=== PATIENT | female | born 1980 | race Caucasian/White ===

== ENCOUNTER 2022-06-11 22:50 | Inpatient (IN) | payer BC, OTHER ==
--- OUTSIDE RECORDS SUMMARY | 2022-06-11 22:54 | XMS REPORT | Continuity of Care Document ---
:1980 Author Organization [facility] [place] [facility] t Address [address] [place] [place] [address] Care Team Providers Name Role Phone Pcp, Patient Does Not Have A Primary Care Physician [id number] YANNICK ROSARIO Attending Clinician Unavailable Alida YOU[employer] SUPPORT WORKERYannick Attending Clinician Doctor Unassigned, Sor[place] Attending Clinician Unavailable Glenda Thomas RN Attending Clinician Unavailable Only, Ang Db Test Attending Clinician Unavailable [place] Pierce Attending Clinician TACOS BERNARD Attending Clinician Unavailable Lab, Adc Fam Pob I Attending Clinician Unavailable Candy Forrest Attending Clinician CANDY ERVIN Attending Clinician Unavailable Narda Zavaleta Attending Clinician August Olivo DO Attending Clinician Payers Payer Name Policy Type Policy Number Effective Date Expiration Date [facility] [id number] 2020 [facility] MEDICAID 00:00:00 MEDICAID [facility] [id number] 2019 00:00:00 [place] [facility] [id number] 2020 HEALTH 00:00:00 Problems Condition Condition Condition Status Onset Resolution Last Treating Co mments Source Name Details Category Date Date Treatment Clinician Date No known No known Disease Unive rs active active ity of problems problems [facility] Allergies, Adverse Reactions, Alerts Allergy Allergy Status Severity Reaction(s) Onset Inactive Treating Comm ents Source Name Type Date Date Clinician CODEINE DRUG Active Unknown-Cmnt Uni vers INGREDI 11-09 ity of 00:00: [place] 00 Medical Branch Codeine Propensi Active Unknown - Pt. Univ ers ty to See comments 11-09 States ity of adverse 00:00: she has [place] reaction 00 always Medical s been told Branch she is allergic but doesn't know reaction. NO KNOWN Drug Active [facility] ALLERGIE Class ity of S [facility] Social History Social Habit Start Date Stop Date Quantity Comments Source Exposure to 2021-10-30 2021-11-09 Not sure [facility] SARS-CoV-2 (event) 00:00:00 14:33:00 Medica l Branch Sex Ass[birth year] At [birth year] [facility] 00:00:00 00:00:00 Medical Branch Smoking Status Start Date Stop Date Source Unknown if ever smoked [facility] Medications Ordered Filled Start Stop Current Ordering Indication Dosage Frequency Signature Comments Components Source Medication Medication Date Date Medication? Clinician (SIG) Name Name ondansetron Yes [id number] 4mg Take 1 Univers 4 mg 11-09 tablet by ity of disintegrat 00:00: mouth [place] ing tablet 00 every 8 Medica l (eight) Branch hours as needed for Nausea and Vomiting (N/V). mupirocin 2 Yes [id number] Apply to Univers % ointment 11-09 area(s) 3 ity of 00:00: (three) [place] 00 times Medical daily. Branch cefdinir 2021- No [id number] 300mg Take 1 U nivers 300 mg 11-09 capsule by ity of capsule 00:00: 04:59 mouth [place] 00 :00 every 12 Medical (twelve) Branch hours for 7 days. fluconazole 2021- No [id number] 150mg Take 1 Univers 150 mg 11-09 tablet by ity of tablet 00:00: 04:59 mouth [place] 00 :00 now for 1 Medical dose. Branch acetaminoph Yes [id number] 1{tbl} Take 1 Univers en-codeine 6-23 tablet by ity of 300-30 mg 00:00: mouth [place] tablet 00 every 4 Medical (four) Branch hours as needed for Pain (scale 7-10). chlorhexidi 2020-0 Yes [id number] 15mL Swish and Univers ne 0.12 % 6-23 spit out ity of mouthwash 00:00: 15 mL 2 [place] 00 (two) Medical times Branch daily. acetaminoph 2020-0 Yes [id number] 1{tbl} Take 1 Univers en-codeine 6-23 tablet by ity of 300-30 mg 00:00: mouth [place] tablet 00 every 4 Medical (four) Branch hours as needed for Pain (scale 7-10). chlorhexidi 2020-0 Yes [id number] 15mL Swish and Univers ne 0.12 % 6-23 spit out ity of mouthwash 00:00: 15 mL 2 [place] 00 (two) Medical times Branch daily. acetaminoph 2020-0 Yes [id number] 1{tbl} Take 1 Univers en-codeine 6-23 tablet by ity of 300-30 mg 00:00: mouth [place] tablet 00 every 4 Medical (four) Branch hours as needed for Pain (scale 7-10). chlorhexidi 2020-0 Yes [id number] 15mL Swish and Univers ne 0.12 % 6-23 spit out ity of mouthwash 00:00: 15 mL 2 [place] 00 (two) Medical times Branch daily. acetaminoph 2020-0 Yes [id number] 1{tbl} Take 1 Univers en-codeine 6-23 tablet by ity of 300-30 mg 00:00: mouth [place] tablet 00 every 4 Medical (four) Branch hours as needed for Pain (scale 7-10). chlorhexidi 2020-0 Yes [id number] 15mL Swish and Univers ne 0.12 % 6-23 spit out ity of mouthwash 00:00: 15 mL 2 [place] 00 (two) Medical times Branch daily. acetaminoph 2020-0 Yes [id number] 1{tbl} Take 1 Univers en-codeine 6-23 tablet by ity of 300-30 mg 00:00: mouth [place] tablet 00 every 4 Medical (four) Branch hours as needed for Pain (scale 7-10). chlorhexidi 2020-0 Yes [id number] 15mL Swish and Univers ne 0.12 % 6-23 spit out ity of mouthwash 00:00: 15 mL 2 [place] 00 (two) Medical times Branch daily. acetaminoph 2020-0 Yes [id number] 1{tbl} Take 1 Univers en-codeine 6-23 tablet by ity of 300-30 mg 00:00: mouth [place] tablet 00 every 4 Medical (four) Branch hours as needed for Pain (scale 7-10). chlorhexidi 2020-0 Yes [id number] 15mL Swish and Univers ne 0.12 % 6-23 spit out ity of mouthwash 00:00: 15 mL 2 [place] 00 (two) Medical times Branch daily. acetaminoph 2020-0 Yes [id number] 1{tbl} Take 1 Univers en-codeine 6-23 tablet by ity of 300-30 mg 00:00: mouth [place] tablet 00 every 4 Medical (four) Branch hours as needed for Pain (scale 7-10). chlorhexidi 2020-0 Yes [id number] 15mL Swish and Univers ne 0.12 % 6-23 spit out ity of mouthwash 00:00: 15 mL 2 [place] 00 (two) Medical times Branch daily. acetaminoph 2020-0 Yes [id number] 1{tbl} Take 1 Univers en-codeine 6-23 tablet by ity of 300-30 mg 00:00: mouth [place] tablet 00 every 4 Medical (four) Branch hours as needed for Pain (scale 7-10). chlorhexidi 2020-0 Yes [id number] 15mL Swish and Univers ne 0.12 % 6-23 spit out ity of mouthwash 00:00: 15 mL 2 [place] 00 (two) Medical times Branch daily. clindamycin 2020-0 2020- No [id number] 300mg Take 2 Univers 150 mg 6-23 07- capsules ity of capsule 00:00: 04:59 by mouth 4 [place] as 00 :00 (four) Medical times Branch daily for 7 days. Vital Signs Vital Name Observation Time Observation Value Comments Source Systolic blood 2021-11-09 19:34:00 144 mm[Hg] Univer sity of pressure [place] [facility] Diastolic blood 2021-11-09 19:34:00 69 mm[Hg] Unive rsity of pressure [facility] Heart rate 2021-11-09 19:34:00 98 /min Universi ty [facility] Body temperature 2021-11-09 19:34:00 37.44 Disha [facility] Respiratory rate 2021-11-09 19:34:00 18 /min [facility] height 2021-11-09 19:34:00 175.3 cm Universi ty [facility] Body weight 2021-11-09 19:34:00 112.492 kg Universi ty [facility] BMI 2021-11-09 19:34:00 36.62 kg/m2 Universi ty [facility] Oxygen saturation in 2021-11-09 19:34:00 97 /min University Arterial blood by [facility] Pulse oximetry Branch Oxygen saturation in 2019-11-25 04:39:00 100 /min University Arterial blood by [facility] Pulse oximetry Branch Systolic blood 2019-11-25 04:39:00 141 mm[Hg] Univer sity of pressure [facility] Diastolic blood 2019-11-25 04:39:00 86 mm[Hg] Unive rsity of pressure [facility] Heart rate 2019-11-25 04:39:00 89 /min [facility] [place] [facility] Body temperature 2019-11-25 04:39:00 37.56 Disha [facility] Respiratory rate 2019-11-25 04:39:00 22 /min [facility] Body weight 2019-11-25 04:39:00 90.719 kg [facility] Procedures Procedure Date / Time Performed Performing Clinician Sour e POCT TEST 2021-11-09 20:08:00 Yannick Rosario [facility] URINALYSIS 2021-11-09 19:41:00 Feliciano Ray o f [facility] NOTICE OF PRIVACY 2021-11-09 19:32:43 Doctor Unassigned, No [facility] Branch CONSENT/REFUSAL FOR 2021-11-09 19:26:22 Doctor Unassigned, No [facility] DI[facility] AND Name Medical Branch TREATMENT WI INJECTION AA&/STRD 2019-11-25 04:49:00 August Olivo s[facility] of [place] TRIGEMINAL NERVE EACH Medical Br anch BRANCH NOTICE OF PRIVACY 2019-11-25 04:35:11 Doctor Unassigned, No [facility] Name Medical Branch CONSENT/REFUSAL FOR 2019-11-25 04:34:50 Doctor Un[facility]igned, [facility] AND Name Medical Branch TREATMENT Encounters Start End Encounter Admission Attending Care Care Encounter Source Date/Time Date/Time Type Type Clinicians Facility Department ID 2021-11-09 2021-11-09 Emergency X [facility] ERT [id number] Univers 14:39:00 18:25:00 YANNICK ity of [facility] 2021-11-09 2021-11-09 Emergency [facility] [id number] Univers 14:39:00 18:25:00 Yannikc WHITMORE [id number] ity of [place] [id number] [place] [facility] [phone] [facility] 084 Branch 2021-11-09 2021-11-09 Orders Doctor SHU [id number] Univers 00:00:00 00:00:00 Only Unassigned, GUTIERREZ [id number] ity of [place] [facility] [id number] [place] as [phone] [facility] 009 Branch 2021-06-20 2021-06-20 Telephone SHU Thomas [id number] Univers 00:00:00 00:00:00 Glendaherberth WHITLEY [id number] it y of HOSPITAL [id number] [place] as [phone] [facility] 019 Branch 2021-06-19 2021-06-19 Laboratory Only, Ang Db Test [facility] [id number] Univers 13:30:00 13:45:00 [facility] [id number] ity of [place] [id number] [place] as KEIRA?BLEA [phone] Pa jacob [address] MEDICAL OFFICE BUILDING 2021-06-19 2021-06-19 Outpatient R TIMO BERNARDMB [facility] [id number] Univers 13:30:00 13:30:00 TACOS ity of [facility] 2020-06-18 2020-06-18 Laboratory Lab, [facility] I [facility] [id number] Univers 16:38:53 16:58:53 Only Candy [facility] [id number] ity of [place] [id number] [place] as Professio [id number] [address] Office Building One 2020-06-18 2020-06-18 Outpatient R KETAN [facility] [id number] Univers 15:40:00 15:40:00 CANDY ity o f [facility] 2020-04-21 2020-04-21 Outpatient R [facility] [id number] Univers 14:40:00 14:40:00 ity of [facility] 2020-04-21 2020-04-21 Laboratory Lab, [facility] Po I [facility] [id number] Univers 13:43:45 14:03:45 Only Narda [facility] [id number] ity of [place] [id number] [place] as Professio [phone] [address] Office [facility] One 2020-04-21 2020-04-21 Letter Doctor SHU [id number] Univers 00:00:00 00:00:00 (Out) Unassigned, GUTIERREZ [id number] ity of [place] [facility] [id number] [place] as [phone] [address] 2019-11-24 2019-11-25 Emergency Olivo, [facility] [id number] Univers 23:43:49 00:37:00 August Whitmore [id number] i ty of [place] [id number] [place] [facility] [phone] [facility] 084 [place] 2019-11-24 2019-11-24 Emergency X [facility] ERT [id number] Univers 23:33:00 23:33:00 ity [facility] Results Test Description Test Time Test Comments Results Result Comments Source POCT TEST 2021-11-09 20:08:00 Test Item Value Reference Range Interpretation Comme nts POCT PREG (test code = 1605) Negative On board controls acceptable with C Line (test code = 3574) Present POCT PREG LOT # (test code = 3575) [id number] POCT PREG TEST DATE (test code = 3576) 04/02/23 Lab Interpretation (test code = 88140-0) Normal [facility] [id number] 04:49:00August Olivo, ? ? 11/24/2019 11:49 PMDental BlockPerformed by: August Olivo DOAuthorized by: August Olivo DO Consent: ?Consent obtained: ?Verbal ?Consent given by: ?Patient ?Risks discussed: ?Allergic reaction, infection, nerve damage, pain, intravascular injection and hematoma ?Alternatives discussed: ?No treatmentIndications: ?Indications: dental pain ?Location: ?Block type: ?Anterior superior alveolar ?Laterality: ?LeftProcedure details (see MAR for exact dosages): ?Syringe type: ?Luer lock syringe ?Needle gauge: ?27 G ?Anesthetic injected: ?Lidocaine 1% w/o epi and bupivacaine 0.5%w/o epi ?Injection procedure: ?Anatomic landmarks identified, introduced needle, incremental injection and anatomic landmarks palpatedPost-procedure details: ?Outcome: ?Anesthesia achieved ?Patient tolerance of procedure: ?Tolerated well, no immediate complicationsUnPermian [facility] Center
[2022-06-11] MEDS ORDERED: ONDANSETRON 4 MG/2 ML VIAL ONE (23:57)
[2022-06-11] MEDS ORDERED: NA CHLORIDE 0.9% 1,000 ML ONE (23:57)
[2022-06-11] MEDS ORDERED: FAMOTIDINE 20 MG/2 ML VIAL IV ONE (23:57)
[2022-06-12] LABS: Urine Blood 3+ (Negative); Urine Glucose Negative (Negative); Urine Protein 2+ (Negative); Urine Specific Gravity 1.025 (1.005-1.030)
[2022-06-12 00:24] LABS: Urine Bacteria <20 /HPF (<20); Urine Mucus 3+ /HPF (None Seen); Urine RBC 21-50 /HPF (None Seen)
[2022-06-12 00:34] LABS: Urine Specific Gravity/Preg 1.025 (1.005-1.030)
[2022-06-12 02:07] LABS: Absolute Lymphocytes (CBC) 1.8 K/uL (0.7-4.9); Hematocrit 39.8 % (36.0-45.0); Lymphocytes % 14.4 % (15.3-44.8); MCV 95.1 fL (80-100); MPV 8.1 fL (7.6-11.3); RBC Red Blood Cell Count 4.18 M/uL (3.86-4.86)
[2022-06-12 02:22] LABS: Albumin 3.4 g/dL (3.4-5.0); Bilirubin Total 0.6 mg/dL (0.2-1.0); Potassium 3.6 mmol/L (3.5-5.1)
--- NOTE | 2022-06-12 03:38 | EDPHYS ---
Physician Documentation [facility] Name: Greta Luna Age: 42 yrs Sex: Female : 1980 Arrival Date: 06/11/2022 Time: 22:56 Bed 4 Private MD: ED Physician Ramon De HPI: 06/12 00:00 This 42 yrs old Female presents to ER via Ambulatory with complaints of cp Nausea/Vomiting, Constipation, Anxiety. 00:00 The patient presents to the emergency department with nausea, that is severe, vomiting, cp that is continuous. Onset: The symptoms/episode began/occurred 3 day(s) ago. Possible causes: unknown. Associated signs and symptoms: Pertinent positives: abdominal pain, anorexia, constipation, Pertinent negatives: fever, GI bleeding. Severity of symptoms: in the emergency department the symptoms are unchanged despite home interventions. 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 - Social history:: Smoking status: Patient reports the use of cigarette tobacco products, smokes one-half pack cigarettes per day. ROS: 06/12 00:05 Constitutional: Positive for poor PO intake, Negative for body aches, chills, fever. cp 00:05 Eyes: Negative for injury, pain, redness, and discharge. cp 00:05 ENT: Negative for drainage from ear(s), ear pain, sore throat, difficulty swallowing, difficulty handling secretions. 00:05 Cardiovascular: Negative for chest pain, palpitations. 00:05 Respiratory: Negative for cough, shortness of breath, wheezing. 00:05 Abdomen/GI: Positive for abdominal pain, nausea and vomiting, constipation, abdominal distension, anorexia, Negative for diarrhea, hematemesis, black/tarry stool, rectal bleeding. 00:05 Neuro: Negative for altered mental status, dizziness, headache, weakness. 00:05 All other systems are negative. Exam: 00:10 Head/Face: Normocephalic, atraumatic. cp 00:10 Constitutional: The patient appears in no acute distress, alert, awake, non-toxic, well developed, well nourished, obese, uncomfortable. 00:10 Eyes: Periorbital structures: appear normal, Conjunctiva: normal, no exudate, no injection, Sclera: no appreciated abnormality, Lids and lashes: appear normal, bilaterally. 00:10 ENT: External ear(s): are unremarkable, Nose: is normal, Mouth: Lips: moist, Oral mucosa: moist, Posterior pharynx: Airway: no evidence of obstruction, patent, erythema, is not appreciated, exudate, is not appreciated. 00:10 Neck: ROM/movement: is normal, is supple, without pain, no range of motions limitations, no meningismus. 00:10 Chest/axilla: Inspection: normal. 00:10 Cardiovascular: Rate: normal, Rhythm: regular, Edema: is not appreciated, JVD: is not appreciated. 00:10 Respiratory: the patient does not display signs of respiratory distress, Respirations: normal, no use of accessory muscles, no retractions, labored breathing, is not present, Breath sounds: are clear throughout, no decreased breath sounds, no stridor, no wheezing. 00:10 Abdomen/GI: Inspection: abdomen appears normal, Bowel sounds: active, all quadrants, Palpation: soft, in all quadrants, severe abdominal tenderness, in all quadrants, rebound tenderness, is not appreciated, voluntary guarding, is elicited in all quadrants. 00:10 Back: CVA tenderness, is absent. 00:10 Skin: no rash present. 00:10 Neuro: Orientation: to person, place \T\ time. Mentation: is normal. Vital Signs: 06/11 23:19 BP 131 / 80; Pulse 97; Resp 18; Temp 97.2; Pulse Ox 97% ; Weight 108.86 kg; Height 5 tw5 ft. 8 in. (172.72 cm); Pain 10; 06/12 01:00 BP 107 / 64; Pulse 65; Resp 19 S; Pulse Ox 97% on R/A; as6 02:03 BP 118 / 65; Pulse 68; Resp 15 S; Pulse Ox 95% on R/A; as6 03:00 BP 131 / 99; Pulse 71; Resp 17; Pulse Ox 95% ; jj7 04:00 BP 124 / 83; Pulse 76; Resp 18; Pulse Ox 99% ; jj7 06/11 23:19 Body Mass Index 36.49 (108.86 kg, 172.72 cm) tw5 MDM: 06/11 23:43 Patient medically screened. 06/12 00:15 Differential diagnosis: Nonspecific abd pain, gastritis, cholecystitis, diverticulitis, cp bowel obstruction, pancreatititis. 03:37 Data reviewed: vital signs, nurses notes, lab test result(s), radiologic studies. rt Management of patient was discussed with the following: Hospitalist: kindra. Independent interpretation of the following test(s) in the Emergency Department CT Scan: My interpretation is moderate stool burden. Test considered but Not performed: Ultrasound no elevated bili. Medication response: morphine partially relieved the patient's pain, Zofran partially relieved the patient's nausea. Response to treatment: the patient's symptoms have mildly improved after treatment. 06/11 23:51 Order name: CBC with Diff; Complete Time: 02:13 06/12 02:14 Interpretation: Normal except: WBC 12.20; CATALINA% 78.6; LYM% 14.4; NEUT A 9.6. 06/11 23:51 Order name: CMP 06/12 02:31 Interpretation: Normal except: GLUC 131; GFR 82; AST 45; ALT 75; GLOB 3.6; A/G 0.9. 06/11 23:51 Order name: Lipase 06/12 02:31 Interpretation: Abnormal: LIP 755. 06/11 23:51 Order name: Urine Microscopic Only; Complete Time: 01:00 06/12 02:31 Interpretation: Normal except: URBC 21-50; SQEPI 20-50; MUCUS 3+. 06/12 00:00 Order name: Urine Dipstick-Ancillary; Complete Time: 01:00 EDNY 06/12 00:04 Order name: Urine --Ancillary (enter results); Complete Time: 01:00 mw2 06/12 01:00 Order name: CT Abd/Pelvis - IV Contrast Only 06/12 02:32 Order name: UDS 06/12 03:34 Order name: SARS RAPID rt 06/12 05:56 Order name: Hemoglobin A1c [facility] 06/12 06:08 Order name: Lipid Profile [facility] 01/09 23:51 Order name: IV Saline Lock; Complete Time: 00:13 cp 06/11 23:51 Order name: Labs collected and sent; Complete Time: 00:13 cp 06/11 23:51 Order name: Urine Dipstick-Ancillary (obtain specimen); Complete Time: 00:03 cp 06/11 23:51 Order name: Urine Test (obtain specimen); Complete Time: 00:03 cp Administered Medications: 00:14 Drug: NS 0.9% 1000 ml Route: IV; Rate: 1 bolus; Site: right antecubital; jj7 06:04 Follow up: Response: No adverse reaction; IV Status: Completed infusion; IV Intake: as6 1000ml 00:14 Drug: Pepcid (famotidine) 20 mg Route: IVP; Site: right antecubital; jj7 06:04 Follow up: Response: No adverse reaction as6 00:14 Drug: Zofran (Ondansetron) 4 mg Route: IVP; Site: right antecubital; jj7 06:04 Follow up: Response: No adverse reaction as6 04:08 Drug: Zofran (Ondansetron) 4 mg Route: IVP; Site: right antecubital; jj7 06:06 Follow up: Response: No adverse reaction as6 04:09 Drug: morphine 4 mg Route: IVP; Infused Over: 4 mins; Site: right antecubital; jj7 06:06 Follow up: Response: No adverse reaction as6 Disposition: 03:37 Co-signature as Attending Physician, Ramon De MD I agree with the assessment and rt plan of care. I reviewed the patient's care provided by Advanced Practice Provider \T\ agree w/ the diagnosis \T\ care plan. I personally saw the pt \T\ performed a substantive portion of the visit, incldng all aspects of the (History/Exam/Medical Decision Making). Disposition Summary: 06/12/22 03:37 Hospitalization Ordered Hospitalization Status: Inpatient Admission rt Provider: Lavern Reeves rt Condition: Fair rt Problem: new rt Symptoms: have improved rt Bed/Room Type: Standard rt Location: Telemetry/MedSurg (Inpatient)(06/12/22 06:26) Room Assignment: [facility](06/12/22 07:06) ss Diagnosis - ACUTE PANCREATITIS rt Forms: - Medication Reconciliation Form rt - SBAR form rt Signatures: Dispatcher [employer] EDRosalee Pena RN RN ss Jeremias Haywood PA PA cp Glenda Gongora RN RN Dede Kidd tw5 Danna Fay RN RN jj7 Ramon De MD MD rt Joshua Cantu RN as6 Corrections: (The following items were deleted from the chart) 06/11 23:24 23:23 Home Meds: None; tw5 tw5 06/12 02:31 02:29 Normal except: GLUC 131; GFR 82. cp cp 04:14 03:37 Telemetry/MedSurg (Inpatient) rt cg 04:14 03:37 rt cg 06:26 04:14 [facility] ER HOLD cg cg 06:26 04:14 ERHOLD- cg cg 07:06 06:26 cg ss
--- NOTE | 2022-06-12 03:38 | ER ---
Nurse's Notes [facility] Name: Greta Luna Age: 42 yrs Sex: Female : 1980 Arrival Date: 06/11/2022 Time: 22:56 Bed 4 Private MD: Diagnosis: ACUTE PANCREATITIS Presentation: 06/11 23:19 Chief complaint: Patient states: "I have not been able to have a bowel movement in two tw5 weeks. I have been in so much pain since Saturday. Every time I eat I throw it back up. I feel bloated, today the pain is just too much. ". Coronavirus screen: Vaccine status: Patient reports being unvaccinated. Ebola Screen: Patient negative for fever greater than or equal to 101.5 degrees Fahrenheit, and additional compatible Ebola Virus Disease symptoms Patient denies exposure to infectious person. Patient denies travel to an Ebola-affected area in the 21 days before illness onset. Initial Sepsis Screen: Does the patient meet any 2 criteria? No. Patient's initial sepsis screen is negative. Does the patient have a suspected source of infection? No. Patient's initial sepsis screen is negative. Risk Assessment: Do you want to hurt yourself or someone else? Patient reports no desire to harm self or others. Onset of symptoms is unknown. 23:19 Acuity: EVELYN 3 tw5 23:19 Method Of Arrival: Ambulatory tw5 Triage Assessment: 23:23 General: Appears uncomfortable, Behavior is crying. Pain: Pain currently is 10 out of tw5 10 on a pain scale. GI: Reports constipation, intolerance of fluids, intolerance of food, nausea, vomiting. 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 - Social history:: Smoking status: Patient reports the use of cigarette tobacco products, smokes one-half pack cigarettes per day. Screenin:50 [facility] ED Fall Risk Assessment (Adult) History of falling in the last 3 months, jj7 including since admission No falls in past 3 months (0 pts) Confusion or Disorientation No (0 pts) Intoxicated or Sedated No (0 pts) Impaired Gait No (0 pts) Mobility Assist Device Used No (0 pt) Altered Elimination No (0 pt) Score/Fall Risk Level 0 - 2 = Low Risk Maintained a safe environment. Abuse screen: Denies threats or abuse. Nutritional screening: No deficits noted. Tuberculosis screening: No symptoms or risk factors identified. Assessment: 23:50 GI: Abdomen is non-distended, Abd is soft X 4 quads Abdomen is tender to palpation in jj7 epigastric area, left upper quadrant and left lower quadrant Reports lower abdominal pain, upper abdominal pain, constipation, nausea, vomiting. 06/12 02:03 General: "I still have a headache". as6 04:31 Reassessment: PT PLACED IN HOSPITAL BED FOR COMFORT. jj7 Vital Signs: 06/11 23:19 BP 131 / 80; Pulse 97; Resp 18; Temp 97.2; Pulse Ox 97% ; Weight 108.86 kg; Height 5 tw5 ft. 8 in. (172.72 cm); Pain 10; 06/12 01:00 BP 107 / 64; Pulse 65; Resp 19 S; Pulse Ox 97% on R/A; as6 02:03 BP 118 / 65; Pulse 68; Resp 15 S; Pulse Ox 95% on R/A; as6 03:00 BP 131 / 99; Pulse 71; Resp 17; Pulse Ox 95% ; jj7 04:00 BP 124 / 83; Pulse 76; Resp 18; Pulse Ox 99% ; jj7 06/11 23:19 Body Mass Index 36.49 (108.86 kg, 172.72 cm) tw5 ED Course: 06/11 22:56 Patient arrived in ED. ja2 23:14 Jeremias Haywood PA is PHCP. cp 23:14 Ramon De MD is Attending Physician. cp 23:22 Triage completed. tw5 23:23 Arm band placed on. tw5 23:32 Joshua Cantu, AMY is Primary Nurse. as6 23:50 Patient has correct armband on for positive identification. Placed in gown. Bed in low jj7 position. Call light in reach. Side rails up X 1. Adult w/ patient. Warm blanket given. 06/12 00:10 Inserted saline lock: 20 gauge in right antecubital area, using aseptic technique. jj7 Blood collected. 00:13 CBC with Diff Sent. jj7 00:13 CMP Sent. jj7 00:13 Lipase Sent. jj7 02:52 CT Abd/Pelvis - IV Contrast Only In Process Unspecified. EDMS 03:36 Lavern Reeves MD is Hospitalizing Provider. rt 06:08 No provider procedures requiring assistance completed. Patient admitted, IV remains in as6 place. Administered Medications: 00:14 Drug: NS 0.9% 1000 ml Route: IV; Rate: 1 bolus; Site: right antecubital; jj7 06:04 Follow up: Response: No adverse reaction; IV Status: Completed infusion; IV Intake: as6 1000ml 00:14 Drug: Pepcid (famotidine) 20 mg Route: IVP; Site: right antecubital; jj7 06:04 Follow up: Response: No adverse reaction as6 00:14 Drug: Zofran (Ondansetron) 4 mg Route: IVP; Site: right antecubital; jj7 06:04 Follow up: Response: No adverse reaction as6 04:08 Drug: Zofran (Ondansetron) 4 mg Route: IVP; Site: right antecubital; jj7 06:06 Follow up: Response: No adverse reaction as6 04:09 Drug: morphine 4 mg Route: IVP; Infused Over: 4 mins; Site: right antecubital; jj7 06:06 Follow up: Response: No adverse reaction as6 Medication: 06/11 23:50 VIS not applicable for this client. jj7 Intake: 06/12 06:04 IV: 1000ml; Total: 1000ml. as6 Outcome: 03:37 Decision to Hospitalize by Provider. rt 06:09 Admitted to ER Hold. Please see [facility] for further documentation. as6 06:09 Condition: stable 06:09 Instructed on the need for admit. 07:37 Patient left the ED. iw Signatures: Dispatcher [employer] EDMS Kerry Beltre RN RN iw Jeremias Haywood PA PA cp Alexander, Jessica ja2 Dede Fried tw5 Joshua Cantu RN RN as6 Danna Fay RN RN jj7 Ramon De MD MD rt Corrections: (The following items were deleted from the chart) 06/11 23:24 23:23 [place] Meds: None; tw5 tw5
--- NOTE | 2022-06-12 03:58 | P.HP ---
Certification for Inpatient Patient admitted to: Inpatient With expected LOS: >2 Midnights Patient will require the following post-hospital care: None Practitioner: I am a practitioner with admitting privileges, knowledge of patient current condition, hospital course, and medical plan of care. Services: Services provided to patient in accordance with Admission requirements found in Title 42 Section 412.3 of the Code of Federal Regulations Patient History Date of Service: 06/12/22 Reason for admission: Acute Pancreatitis History of Present Illness: Patient is a 42 year old female who presented to the emergency department with complaints of nausea, vomiting, abdominal pain, and constipation. She reports she has not had a BM in 2 weeks but started having intractable n/v/abd pain about 3 days ago. She reports the pain is mostly in the epigastric region. She has not been able tolerate PO. CT showed acute pancreatitis without pseudocyst. Labs significant for lipase 755, WBC 12. She was given morphine, zofran, and pepcid with mild relief. She denies any prior episodes of pancreatitis. States minimal alcohol intake. Denies any gallbladder issues. Does not believe she has high cholesterol/hyperlipiemia. States her mother did have chronic panreatitis secondary to alcohol abuse. Patient is admitted for further management. Allergies acetaminophen [From Darvocet-N 100] Allergy (Mild, Verified 09/23/11 15:15) Nausea/Vomiting propoxyphene napsylate [From Darvocet-N 100] Allergy (Mild, Verified 09/23/11 15:15) Nausea/Vomiting Home medications list reviewed: Yes - Past Medical/Surgical History Diabetic: No -: Paroxsymal Atrial Fibrillation -: Endometriosis -: Iron Deficiency Anemia -: x 2 -: Endometrial Mass Excision Psychosocial/ Personal History: Patient is . - Family History Mother -: Heart disease - Social History Smoking Status: Current every day smoker Alcohol use: No CD- Drugs: No Caffeine use: Yes Place of Residence: Home Review of Systems Gastrointestinal: Nausea, Vomiting, Abdominal Pain, Constipation Physical Examination - Vital Signs Temperature: 97.2 F Blood Pressure: 124/83 Pulse: 76 Respirations: 18 Pulse Ox (%): 99 - Physical Exam General: Alert, In no apparent distress HEENT: Atraumatic, PERRLA, EOMI, Sclerae nonicteric Neck: Supple, 2+ carotid pulse no bruit, No LAD, Without JVD or thyroid abnormality Respiratory: Clear to auscultation bilaterally, Normal air movement Cardiovascular: Regular rate/rhythm, Normal S1 S2 Gastrointestinal: Normal bowel sounds, Non-distended, Tenderness Musculoskeletal: No tenderness Integumentary: No rashes Neurological: Normal speech, Normal strength at 5/5 x4 extr, Normal tone, Normal affect - Studies Laboratory Data (last 24 hrs) 06/12/22 01:51: Sodium 140, Potassium 3.6, BUN 14, Creatinine 0.90, Glucose 131 H, Total Bilirubin 0.6, AST 45 H, ALT 75 H, Alkaline Phosphatase 100, Lipase 755 H 06/12/22 01:51: WBC 12.20 H, Hgb 13.3, Hct 39.8, Plt Count 283 Assessment and Plan - Problems (Diagnosis) (1) Acute pancreatitis Current Visit: Yes Status: Acute Qualifiers: Pancreatitis type: unspecified pancreatitis type Acute pancreatitis complication: no infection or necrosis Qualified Code(s): K85.90 - Acute pancreatitis without necrosis or infection, unspecified - Plan Patient is admitted for further management of acute pancreatitis. Lipase and CBC daily. Liver enzymes slightly elevated. Will recheck tomorrow. Tbili WNL. Pain medicine and antiemetics as needed. NPO. IV hydration. Will check lipid panel. Monitor and replete electrolytes per protocol. Reconcile and continue home medications. Lovenox for VTE prophylaxis. Full code. Discharge Plan: Home Plan to discharge in: Greater than 2 days - Advance Directives Does patient have a Living Will: No Does patient have a Durable POA for Healthcare: No - Code Status/Comfort Care Code Status Assessed: Yes Code Status: Full Code Physician Review: Patient Assessed, Agree with Above Assessment and Plan Critical Care: No Time Spent Managing Pts Care (In Minutes): 50
[2022-06-12] MEDS ORDERED: ONDANSETRON 4 MG/2 ML VIAL ONE ×2 (04:02→05:29)
[2022-06-12] MEDS ORDERED: MORPHINE 4 MG/ML SYR ONE (04:02)
[2022-06-12 04:31] LABS: SARS-CoV-2 Antigen Rapid Res Negative (Negative)
[2022-06-12] MEDS ORDERED: MORPHINE 2 MG/ML SYR IV PRN (05:16)
[2022-06-12] MEDS: Ringers Lactate 1,000 ML IV SCH ×3 (05:16→23:35)
[2022-06-12] MEDS ORDERED: MORPHINE 2 MG/ML SYR ONE (05:29)
[2022-06-12] MEDS: ONDANSETRON 4 MG/2 ML VIAL IV PRN ×3 (05:31→18:19)
[2022-06-12 05:48] VITALS: BMI 36.5
[2022-06-12] MEDS ORDERED: INFLUENZA VACCINE (for 6+ mo) 0.5 ML DOSE IMVAC ONE (08:00)
[2022-06-12] MEDS ORDERED: ACETAMIN/CAFFEINE/BUTALB TAB PO ONE ×2 (10:20→21:51)
[2022-06-12] MEDS: ENOXAPARIN 40 MG/0.4 ML SQ SCH (10:43)
[2022-06-12] MEDS: MORPHINE 4 MG/ML SYR IV PRN ×4 (10:51→22:28)
--- NOTE | 2022-06-12 14:06 | RAD REPORT ---
EXAM DESCRIPTION: CT - Abdomen Pelvis W Contrast - 06/12/2022 7:17 am CLINICAL HISTORY: The patient is 42 years old and is Female; abdominal pain, constipation TECHNIQUE: Axial computed tomography images of the abdomen and pelvis with intravenous contrast. S agittal and coronal reformatted images were created and reviewed. This CT exam was performed using one or more of the following dose reduction techniques: automated exposure control, adjustment of t he mA and/or kV according to patient size, and/or use of iterative reconstruction technique. COMPARISON: No relevant prior studies available. FINDINGS: LUNG BASES: Unremarkable. No mass. No consolidation. ABDOMEN: LIVER: The liver is enlarged and diffusely fatty. GALLBLADDER AND BILE DUCTS: No calcified stones. No ductal dilation. PANCREAS: Peripancreatic inflammation and fluid is noted. The pancreas enhances uniformly. SPLEEN: Unremarkable. ADRENALS: Unremarkable. No mass. KIDNEYS AND URETERS: Unremarkable. The kidneys enhance symmetrically. No obstructing renal or ur eteral calculus is seen. No hydronephrosis or hydroureter. No perinephric fluid or stranding. STOMACH AND BOWEL: The stomach is distended with fluid and air. The small bowel is normal in zana iber. Stool is present throughout colon. There is no mucosal thickening or evidence of obstruction. PELVIS: APPENDIX: The appendix is normal in caliber without surrounding inflammation. BLADDER: Unremarkable. No mass. REPRODUCTIVE: Unremarkable as visualized. ABDOMEN and PELVIS: INTRAPERITONEAL SPACE: Unremarkable. No free air. No significant fluid collection. BONES/JOINTS: No acute fracture. SOFT TISSUES: A small fat-containing umbilical hernia is present. VASCULATURE: Unremarkable. No abdominal aortic aneurysm. LYMPH NODES: Unremarkable. No enlarged lymph nodes. IMPRESSION: Findings consistent with acute pancreatitis. No evidence of pseudocyst. Electronically signed by: Julianne Lozada MD 06/12/2022 3:21 AM SPAR CAP BEVELER Due to temporary technical issues with the PACS/Fluency reporting system, reports are being signed by the in house radiologists without review as a courtesy to insure prompt reporting. The interpreting radiologist is fully responsible for the content of the report.
[2022-06-12] MEDS: ACETAMIN/CAFFEINE/BUTALB TAB PO PRN (22:00)
[2022-06-13] MEDS: ONDANSETRON 4 MG/2 ML VIAL IV PRN ×4 (01:41→22:15)
[2022-06-13] MEDS: MORPHINE 4 MG/ML SYR IV PRN ×5 (02:46→20:17)
[2022-06-13 05:09] LABS: Absolute Lymphocytes (CBC) 1.9 K/uL (0.7-4.9); Hematocrit 39.6 % (36.0-45.0); Lymphocytes % 22.9 % (15.3-44.8); MCV 95.2 fL (80-100); MPV 8.5 fL (7.6-11.3); RBC Red Blood Cell Count 4.16 M/uL (3.86-4.86)
[2022-06-13 05:30] LABS: Albumin 3.3 g/dL (3.4-5.0); Bilirubin Total 0.5 mg/dL (0.2-1.0); Magnesium 1.9 mg/dL (1.6-2.4); Phosphorus 2.9 mg/dL (2.5-4.9); Potassium 3.4 mmol/L (3.5-5.1)
[2022-06-13] MEDS: Ringers Lactate 1,000 ML IV SCH ×2 (06:57→16:13)
[2022-06-13] MEDS ORDERED: POTASSIUM CL 40 MEQ in NA CHLORIDE 0.9% 500 ML IV SCH (09:00)
[2022-06-13] MEDS: ENOXAPARIN 40 MG/0.4 ML SQ SCH (09:05)
[2022-06-13] MEDS: ACETAMIN/CAFFEINE/BUTALB TAB PO PRN (14:30)
[2022-06-14] MEDS: Ringers Lactate 1,000 ML IV SCH ×2 (01:03→08:37)
[2022-06-14] MEDS: ACETAMIN/CAFFEINE/BUTALB TAB PO PRN (01:03)
[2022-06-14] MEDS: MORPHINE 4 MG/ML SYR IV PRN (03:33)
[2022-06-14] MEDS: ONDANSETRON 4 MG/2 ML VIAL IV PRN (04:31)
[2022-06-14] MEDS: ENOXAPARIN 40 MG/0.4 ML SQ SCH (08:37)
[2022-06-14 09:30] VITALS: O2SAT 99
[2022-06-14 11:19] LABS: Hematocrit 37.9 % (36.0-45.0); Lymphocytes % 26.8 % (15.3-44.8); MCV 95.2 fL (80-100); MPV 8.6 fL (7.6-11.3); RBC Red Blood Cell Count 3.98 M/uL (3.86-4.86)
[2022-06-14 11:42] LABS: Albumin 3.4 g/dL (3.4-5.0); Bilirubin Total 0.4 mg/dL (0.2-1.0); Potassium 4.4 mmol/L (3.5-5.1); Protein, Total 7.1 g/dL (6.4-8.2)
[2022-06-14] MEDS ORDERED: TRAMADOL HCL 50 MG TAB PO PRN (13:34)
[2022-06-14 16:40] VITALS: BP 116/75; TEMP 97.1
--- NOTE | 2022-06-18 10:51 | P.PN ---
Date of Service: 06/13/22 Subjective Patient is clinically doing better. Still having some epigastric tenderness and requiring IV pain medication. Continuing with IV fluids. Lipase is still slightly elevated. CT imaging with fat stranding around the pancreas suggestive of acute pancreatitis but no cholelithiasis noted. Patient does not drink alcohol. Triglycerides were normal. I do not have the exact etiology of her acute pancreatitis. Clinical symptoms are improving. I'll go ahead and start her on a clear liquid diet. Physical Examination - Vital Signs Reviewed - Physical Exam General: Alert, In no apparent distress Respiratory: Clear to auscultation bilaterally, Normal air movement Cardiovascular: Regular rate/rhythm, Normal S1 S2 Gastrointestinal: Normal bowel sounds, Non-distended, Tenderness Neurological: No focal deficits Assessment and Plan - Problems (Diagnosis) (1) Acute pancreatitis Current Visit: Yes Status: Acute Qualifiers: Pancreatitis type: unspecified pancreatitis type Acute pancreatitis complication: no infection or necrosis Qualified Code(s): K85.90 - Acute pancreatitis without necrosis or infection, unspecified - Plan -IV pain meds -IV hydration -Lipase remains elevated; CT findings positive; unknown etiology-pt does not have gallstones and denies drinking. Triglycerides are normal. Will review her medication list as well. - start a clear liquid diet today and she is tolerating this tomorrow I will advance it if her lipase is not more elevated. Time Spent Managing Pts Care (In Minutes): 30
--- NOTE | 2022-06-18 11:01 | P.DS ---
Discharge Date: 06/14/22 Disposition: ROUTINE DISCHARGE Discharge Condition: GOOD Reason for Admission: Acute Pancreatitis Brief History of Present Illness: Patient is a 42 year old female who presented to the emergency department with complaints of nausea, vomiting, abdominal pain, and constipation. She reports she has not had a BM in 2 weeks but started having intractable n/v/abd pain about 3 days ago. She reports the pain is mostly in the epigastric region. She has not been able tolerate PO. CT showed acute pancreatitis without pseudocyst. Labs significant for lipase 755, WBC 12. She was given morphine, zofran, and pepcid with mild relief. She denies any prior episodes of pancreatitis. States minimal alcohol intake. Denies any gallbladder issues. Does not believe she has high cholesterol/hyperlipiemia. States her mother did have chronic panreatitis secondary to alcohol abuse. Patient is admitted for further management. Hospital Course: Patient did well during hospitalization. We were really able to figure out the cause of her acute pancreatitis. Her lipase has improved but has not gone all the way back to normal. She is feeling better and her pain is better controlled. We were able to switch her over to oral pills today. Since she is on oral medication she is wanting to go home. Clinically she is doing well. I have advised her to follow with gastroenterology. At this time, patient is stable for discharge with outpatient follow up. Vital Signs/Physical Exam: Temp Pulse Resp BP Pulse Ox 97.1 F 91 H 14 116/75 94 06/14/22 16:00 06/14/22 16:00 06/14/22 16:00 06/14/22 16:00 06/14/22 16:00 General: Alert, In no apparent distress, Oriented x3 Laboratory Data at Discharge: WBC 7.60 K/uL (4.3-10.9) 06/14/22 10:52 Hgb 12.9 g/dL (12.0-15.0) 06/14/22 10:52 Hct 37.9 % (36.0-45.0) 06/14/22 10:52 Plt Count 322 K/uL (152-406) 06/14/22 10:52 Sodium 141 mmol/L (136-145) 06/14/22 10:52 Potassium 4.4 mmol/L (3.5-5.1) 06/14/22 10:52 BUN 6 mg/dL (7-18) L 06/14/22 10:52 Creatinine 0.88 mg/dL (0.55-1.02) 06/14/22 10:52 Glucose 122 mg/dL (74-106) H 06/14/22 10:52 Phosphorus 2.9 mg/dL (2.5-4.9) 06/13/22 04:04 Magnesium 1.9 mg/dL (1.6-2.4) 06/13/22 04:04 Total Bilirubin 0.4 mg/dL (0.2-1.0) 06/14/22 10:52 AST 57 U/L (15-37) H 06/14/22 10:52 ALT 69 U/L (13-56) H 06/14/22 10:52 Alkaline Phosphatase 86 U/L (45-117) 06/14/22 10:52 Triglycerides 153 mg/dL (<150) H 06/12/22 01:51 Triglycerides Cancelled 06/12/22 01:51 Cholesterol 223 mg/dL (<200) H 06/12/22 01:51 Cholesterol Cancelled 06/12/22 01:51 HDL Cholesterol 37 mg/dL (40-60) L 06/12/22 01:51 HDL Cholesterol Cancelled 06/12/22 01:51 Cholesterol/HDL Ratio 6.03 06/12/22 01:51 Cholesterol/HDL Ratio Cancelled 06/12/22 01:51 Lipase 484 U/L (73-393) H 06/14/22 10:52 Home Medications: Ondansetron [Zofran] 4 mg PO Q6H PRN #30 tab 06/14/22 New Medications: Ondansetron [Zofran] 4 mg PO Q6H PRN #30 tab PRN Reason: Nausea / Vomiting Physician Discharge Instructions: -DC IV and DC home -Follow-up with PCP in 1 to 2 weeks -Follow-up with GI in 1 to 2 weeks -Please call Dr. Reeves at [phone] if any questions regarding hospital stay -Please call nursing station at [phone] if any nursing or medication questions -Return to the emergency room if symptoms worsen Diet: low fat Activity: Fall precautions Followup: NONE,NONE [Primary Care Provider] - Luis Alfredo Barahona MD [ACTIVE - CAN ADMIT] - González Maldonado MD [ASSOCIATE-ACTIVE - CAN ADMIT] - Time spent managing pt's care (in minutes): 35
== END 2022-06-14 17:31 | disposition home or self-care (01) | DRG 440 ==
LOC: ER 22:50 → ERHOLD 06-12 03:49 → 4TH 06-12 07:26
PROVIDERS: ADMIT Hospitalist; ATTEND Hospitalist
DX: K85.90 Acute pancreatitis without necrosis or infection, unspecified (principal); I48.0 Paroxysmal atrial fibrillation; N80.42 Endometriosis of rectovaginal septum with involvement of vagina; F43.10 Post-traumatic stress disorder, unspecified; D50.9 Iron deficiency anemia, unspecified; Z72.0 Tobacco use; Z88.6 Allergy status to analgesic agent
CPT/HCPCS: 36415; 74177; 80053; 80061; 81003; 81015; 81025; 83036; 83690; 83735; 84100; 84132; 84443; 85025; 87811; 96361; 96374; 96375; 99285; J1650; J2270; J2405; J3480; J7030; J7040; J7120; Q9967

== ENCOUNTER 2023-09-09 22:04 | Inpatient (IN) | payer MEDICAID, OTHER, SELFPAY ==
[2023-09-10] MEDS ORDERED: ONDANSETRON 4 MG/2 ML VIAL ONE ×3 (00:54→06:15)
[2023-09-10] MEDS ORDERED: MORPHINE 4 MG/ML SYR ONE ×3 (00:54→06:16)
[2023-09-10] MEDS ORDERED: FAMOTIDINE 20 MG/2 ML VIAL IV ONE (00:54)
[2023-09-10] MEDS ORDERED: NA CHLORIDE 0.9% 1,000 ML ONE (00:55)
[2023-09-10 01:34] LABS: Absolute Basophils 0.1 K/uL (0-0.5); Absolute Eosinophils 0.6 K/uL (0-0.5); Absolute Lymphocytes (CBC) 1.8 K/uL (0.7-4.9); Absolute Monocytes 0.5 K/uL (0.1-1.3); Absolute Neutrophil 8.7 K/uL (1.8-8.0); Basophils % 0.5 % (0-1.3); Eosinophils % 5.1 % (0-4.4); Hematocrit 39.9 % (36.0-45.0); Hemoglobin 13.1 g/dL (12.0-15.0); Lymphocytes % 15.1 % (15.3-44.8); MCH 29.6 pg (27.0-35.0); MCHC 32.8 g/dL (32.0-36.0); MCV 90.2 fL (80-100); MPV 8.6 fL (7.6-11.3); Neutrophils % 75.3 % (41.7-73.7); Platelets 337 thou/uL (152-406); RBC Red Blood Cell Count 4.43 M/uL (3.86-4.86); Red Cell Distribution Width 13.6 % (12.1-15.2)
[2023-09-10 01:34] LABS: Specific Gravity 1.021 (1.005-1.030)
[2023-09-10 01:35] LABS: Specific Gravity 1.022 (1.005-1.030); Urine Bacteria 20-50 /HPF (<20); Urine Bilirubin NEGATIVE (Negative); Urine Blood 1+ (Negative); Urine Clarity Extremely Turbid (Clear); Urine Color Yellow (Yellow); Urine Culture Reflex Order NOT NEEDED; Urine Glucose NEGATIVE (Negative); Urine Ketones NEGATIVE (Negative); Urine Microscopic Reflex YN ORDER UMIC; Urine Mucus Slight /HPF (None Seen); Urine Nitrite 2+ (Negative); Urine Protein NEGATIVE (Negative); Urine RBC <5 /HPF (None Seen); Urine Urobilinogen Normal (Normal); Urine WBC <5 /HPF (<5); Urine pH 5.5 (5.0-7.0)
[2023-09-10 01:42] LABS: Albumin 4.1 g/dL (3.4-5.0); Albumin/Globulin Ratio 1.1 (1.1-1.8); Bilirubin Total 0.6 mg/dL (0.2-1.0); Globulin 3.7 g/dL (2.3-3.5); Protein, Total 7.8 g/dL (6.4-8.2)
[2023-09-10] MEDS ORDERED: PROMETHAZINE INJ 25 MG/ML AMP ONE (03:45)
[2023-09-10] MEDS ORDERED: LIDOCAINE 1% 20 ML MDV ONE (05:24)
--- NOTE | 2023-09-10 06:02 | EDPHYS ---
Physician Documentation [facility] Name: Greta Luna Age: 43 yrs Sex: Female : 1980 Arrival Date: 09/09/2023 Time: 22:04 Bed 20 Private MD: ED Physician Ziggy Bonner HPI: 09/08 23:13 This 43 yrs old Female presents to ER via Ambulatory with complaints of Abdominal Pain. cp 23:13 The patient presents with abdominal pain in the epigastric area. Onset: The cp symptoms/episode began/occurred 4 day(s) ago. 23:13 The symptoms radiate to back. Associated signs and symptoms: Pertinent positives: cp nausea and vomiting, constipation, Pertinent negatives: diarrhea, fever, vomiting blood. 23:13 The symptoms are described as constant. Severity of pain: in the emergency department cp the pain is unchanged despite home interventions. 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 - Infectious Disease History:: Denies. - Social history:: Smoking status: Patient denies any tobacco usage or history of. ROS: 23:20 Constitutional: Positive for poor PO intake, Negative for body aches, chills, fever, cp 23:20 Eyes: Negative for injury, pain, redness, and discharge, cp 23:20 ENT: Positive for Negative for drainage from ear(s), ear pain, 23:20 Cardiovascular: Negative for palpitations, 23:20 Respiratory: Negative for cough, shortness of breath, wheezing, 23:20 Abdomen/GI: Positive for abdominal pain, nausea, vomiting, constipation, Negative for vomiting, hematemesis, black/tarry stool, flatulence, 23:20 : Negative for urinary symptoms, flank pain, 23:20 Neuro: Negative for altered mental status, dizziness, headache, syncope, weakness, 23:20 All other systems are negative, Exam: 23:25 Constitutional: The patient appears in no acute distress, alert, awake, well developed, cp well nourished, uncomfortable, 23:25 Head/Face: Normocephalic, atraumatic. cp 23:25 Eyes: Periorbital structures: appear normal, Conjunctiva: normal, no exudate, no injection, Sclera: no appreciated abnormality, Lids and lashes: appear normal, bilaterally, 23:25 ENT: External ear(s): are unremarkable, Nose: is normal, Mouth: Lips: moist, Oral mucosa: pink and intact, moist, Posterior pharynx: is normal, airway is patent, no erythema, no exudate, 23:25 Chest/axilla: Inspection: normal, Palpation: is normal, no crepitus, no tenderness, 23:25 Cardiovascular: Rate: normal, Rhythm: regular, 23:25 Respiratory: the patient does not display signs of respiratory distress, Respirations: normal, no use of accessory muscles, no retractions, labored breathing, is not present, Breath sounds: are clear throughout, no decreased breath sounds, no stridor, no wheezing, 23:25 Abdomen/GI: Inspection: Palpation: abdomen is soft and non-tender, in all quadrants, Vital Signs: 23:10 BP 121 / 96; Pulse 89; Resp 18 S; Temp 98.4(TE); Pulse Ox 100% on R/A; as6 23:13 Weight 104.33 kg (R); Height 5 ft. 9 in. (R); Pain 8/10; as6 23:30 BP 121 / 69; Pulse 84; Resp 17 S; Pulse Ox 99% on R/A; ha1 04/09 00:30 BP 114 / 78; Pulse 59; Resp 17 S; Pulse Ox 98% on R/A; ha1 01:30 BP 118 / 75; Pulse 61; Resp 17 S; Pulse Ox 98% on R/A; ha1 03:34 BP 135 / 72; Pulse 59; Resp 17 S; Pulse Ox 99% on R/A; ha1 05:02 BP 126 / 64; Pulse 59; Resp 17 S; Pulse Ox 99% on R/A; ha1 06:00 BP 115 / 75; Pulse 59; Resp 17 S; Pulse Ox 100% on R/A; ha1 06:54 BP 125 / 77; Pulse 57; Resp 17 S; Temp 98.2; Pulse Ox 100% ; ha1 09/08 23:13 Body Mass Index 33.96 (104.33 kg, 175.26 cm) as6 23:13 Pain Scale: Adult as6 Procedures: 05:58 Central Line: the site was prepped with in sterile fashion, Hibiclens , a triple lumen sp4 catheter was inserted, in the right internal jugular vein, in 1 attempts. placement was verified, by CXR, by blood return, Ultrasound Guided CVL, the site was dressed with 4X4s, Tegaderm, using sterile technique, the patient tolerated the procedure, well, Central line placed secondary to very poor peripheral access. MDM: 09/08 23:14 Patient medically screened. cp 09/09 05:04 ED course: TECHNIQUE: Axial computed tomography images of the abdomen and pelvis sp4 without intravenous contrast. Sagittal and coronal reformatted images were created and reviewed. This CT exam was performed using one or more of the following dose reduction techniques: automated exposure control, adjustment of the mA and/or kV according to patient size, and/or use of iterative reconstruction technique. COMPARISON: 09/05/2022 CT abdomen pelvis with contrast FINDINGS: LUNG BASES: Unremarkable No mass. No consolidation. ABDOMEN: LIVER: Fatty infiltration of the liver. Mild hepatomegaly. GALLBLADDER AND BILE DUCTS: Unremarkable No calcified stones. No ductal dilation. PANCREAS: Moderate fat stranding demonstrated about the pancreas, with appearance most consistent with acute uncomplicated pancreatitis. No pancreatic ductal dilatation or suspicious solid or cystic masses identified on this noncontrasted exam. SPLEEN: Unremarkable No splenomegaly. ADRENALS: Unremarkable No mass. KIDNEYS AND URETERS: Unremarkable No obstructing stones. No hydronephrosis. STOMACH AND BOWEL: Unremarkable No obstruction. No mucosal thickening. PELVIS: APPENDIX: No findings to suggest acute appendicitis. BLADDER: Unremarkable No stones. REPRODUCTIVE: Unremarkable as visualized. ABDOMEN and PELVIS: INTRAPERITONEAL SPACE: Unremarkable No free air. No significant fluid collection. BONES/JOINTS: No acute fracture. No dislocation. SOFT TISSUES: Small fat-containing umbilical hernia. VASCULATURE: Unremarkable No abdominal aortic aneurysm. LYMPH NODES: Unremarkable No enlarged lymph nodes. TUBES, LINES AND DEVICES: Postsurgical changes in the inferior midline abdominal wall/pelvis. Query remote or supra pubic catheter placement. IMPRESSION: 1. Acute uncomplicated pancreatitis, allowing for lack of intravenous contrast. 2. Hepatomegaly and hepatic steatosis. . 05:58 Differential Diagnosis altered mental status, sepsis, flu, pancreatitis . Data sp4 reviewed: vital signs, nurses notes, old medical records, lab test result(s), radiologic studies, CT scan. Consideration of Admission/Observation Escalation of care including admission/observation considered. 07:21 ED course: EXAM DESCRIPTION: Chest Single View CLINICAL HISTORY: Right CVL placement sp4 COMPARISON: 09/10/2023 FINDINGS: Single frontal view of the chest. Tubes and lines: Interval placement of right IJ central venous catheter tip in the SVC. Cardiomediastinal silhouette: Stable Lungs: No consolidation, pneumothorax, or pleural effusion. Bones: Stable. Upper abdomen: Stable. IMPRESSION: Right IJ central venous catheter with tip in the SVC. Electronically signed by: Simón Crowley DO 09/10/2023 06:38 AM. 09/09 00:02 Order name: CBC with Diff; Complete Time: 01:38 cp 09/09 01:39 Interpretation: Normal except: WBC 11.60; CATALINA% 75.3; LYM% 15.1; EOSINOPHIL % 5.1; NEUT cp A 8.7; EOSA 0.6. 09/09 00:02 Order name: CMP; Complete Time: 01:45 cp 09/09 01:45 Interpretation: Normal except: GLUC 119; GFR 77; GLOB 3.7. cp 09/09 00:02 Order name: Lipase; Complete Time: 01:45 cp 09/09 01:46 Interpretation: Abnormal: LIP 206. cp 09/09 00:02 Order name: Test, Urine; Complete Time: 01:38 cp 09/09 00:02 Order name: Urinalysis w/ reflexes; Complete Time: 01:38 cp 09/09 01:40 Interpretation: Normal except: [facility] Extremely Turbid; UBLD 1+; UNIT 2+; UBACT 20-50. cp 09/09 06:22 Order name: Thyroid Stimulating Hormone EDMS 09/09 06:22 Order name: CBC with Automated Diff EDMS 09/09 06:22 Order name: CBC with Automated Diff EDMS 09/09 06:22 Order name: CBC with Automated Diff EDMS 09/09 06:22 Order name: CBC with Automated Diff EDMS 09/09 06:22 Order name: Comprehensive Metabolic Panel EDMS 09/09 06:22 Order name: Comprehensive Metabolic Panel EDMS 09/09 06:22 Order name: Comprehensive Metabolic Panel EDMS 09/09 06:22 Order name: Comprehensive Metabolic Panel EDMS 09/09 06:22 Order name: Lipid Profile EDMS 09/09 06:22 Order name: Lipid Profile EDMS 09/09 06:22 Order name: Magnesium EDMS 09/09 06:22 Order name: Magnesium EDMS 09/09 06:22 Order name: Magnesium EDMS 09/09 06:22 Order name: Magnesium EDMS 09/09 06:22 Order name: Blood Culture EDMS 09/09 06:22 Order name: Urine Culture EDMS 09/09 00:02 Order name: XRAY Chest (1 view) cp 09/09 03:05 Order name: Abdomen EDMS 09/09 06:02 Order name: Chest Single View XRAY sp4 09/09 06:22 Order name: Abdomen Exam Limited; Complete Time: 09:50 EDMS 09/09 00:02 Order name: IV Saline Lock; Complete Time: 06:39 cp 09/09 00:02 Order name: Labs collected and sent; Complete Time: 01:06 cp 09/09 05:14 Order name: Central Line Kit; Complete Time: 06:10 sp4 Administered Medications: 01:35 Drug: Famotidine IVP 20 mg IVP once; dilute with 10 mL 0.9% NaCl; give over 2 minutes ha1 Route: IVP; Site: left forearm; 02:00 Follow up: Response: No adverse reaction; Marked relief of symptoms ha1 01:40 Drug: Ondansetron IVP 4 mg IVP once; over 2 minutes {Note: GIVEN IM CARE PROVIDER ha1 DISCRETION .} Route: IVP; Site: Other; 02:00 Follow up: Response: No adverse reaction; Marked relief of symptoms ha1 01:42 Drug: morphine IVP or IV 4 mg IVP once over 4 mins {Note: GIVEN IM . CARE PROVIDER ha1 DISCRETION .} Route: IVP; Infused Over: 4 mins; Site: Other; 02:00 Follow up: Response: No adverse reaction; Pain is decreased; RASS: Alert and Calm (0) ha1 03:47 Drug: Zofran IM 4 mg IM once Route: IM; Site: right ventrogluteal; ha1 03:50 Drug: Promethazine IM 25 mg IM once Route: IM; Site: left ventrogluteal; ha1 03:52 Drug: morphine IM 4 mg IM once Route: IM; Site: right deltoid; ha1 04:02 Not Given (Duplicate Order): morphineor iv 4 mg IVP once over 4 mins ha1 04:02 Not Given (Duplicate Order): ondansetron 4 mg IVP once; over 2 minutes ha1 06:30 Drug: NS 0.9% IV 1000 ml IV at 1 bolus Per protocol; 1000 mL bolus Route: IV; Rate: 1 ha1 bolus; Site: right jugular; 06:53 Follow up: Response: No adverse reaction; IV Status: Infusion continued ha1 06:30 Drug: NS 0.9% IV 1000 ml IV at 125 ml/hr continuous Route: IV; Rate: 125 ml/hr; Site: ha1 right jugular; 06:52 Follow up: Response: No adverse reaction; IV Status: Infusion continued ha1 06:31 Drug: Ondansetron IVP 4 mg IVP once; over 2 minutes Route: IVP; Site: right jugular; ha1 06:53 Follow up: Response: No adverse reaction; Marked relief of symptoms; Nausea is decreasedha1 06:33 Drug: morphine IVP or IV 4 mg IVP once over 4 mins Route: IVP; Infused Over: 4 mins; ha1 Site: right jugular; 06:53 Follow up: Response: No adverse reaction; Marked relief of symptoms; Pain is decreased; ha1 RASS: Alert and Calm (0) 06:39 Drug: NS 0.9% IV 1000 ml IV at 1 bolus Per protocol; 1000 mL bolus Route: IV; Rate: 1 ha1 bolus; Site: right jugular; 06:51 Follow up: Response: No adverse reaction; IV Status: Infusion continued ha1 Disposition: 05:14 Co-signature as Attending Physician, Jeremias ESPINAL I agree with the assessment and plan sp4 of care. I reviewed the patient's care provided by Advanced Practice Provider \T\ agree w/ the diagnosis \T\ care plan. I personally saw the pt \T\ performed a substantive portion of the visit, incldng all aspects of the (History/Exam/Medical Decision Making). Disposition Summary: 09/10/23 06:01 Hospitalization Ordered Notes: Hospitalization Status: Inpatient Admission sp4 Provider: Pj Pascual sp4 Location: Telemetry/[facility] (Inpatient) sp4 Condition: Stable sp4 Problem: new sp4 Symptoms: have improved sp4 Bed/Room Type: Standard sp4 Room Assignment: 408(09/10/23 06:25) km Diagnosis - Acute recurrent pancreatitis sp4 Forms: - Medication Reconciliation Form sp4 - SBAR form sp4 - Leadership Thank You Letter sp4 Signatures: Dispatcher [employer] EDMS Rekha Cruz FNP-C PIANO [employer]ILDER-Csnw Jeremias Haywood PA PA cp Slawson, Ashby, RN RN as6 Susan Hernandes RN RN ha1 Ziggy Bonner MD MD sp4 Fide Rodriguez [facility] Corrections: (The following items were deleted from the chart) 00:03 00:03 CBC+H.LAB.BRZ ordered. EDMS EDMS 00:03 00:03 COMPREHENSIVE METABOLIC PANEL+C.LAB.BRZ ordered. EDMS EDMS 00:03 00:03 LIPASE+C.LAB.BRZ ordered. EDMS EDMS 00:03 00:03 Test, Urine+UC.LAB.BRZ ordered. EDMS EDMS 00:03 00:03 Urinalysis+U.LAB.BRZ ordered. EDMS EDMS 03:05 00:43 Abdomen Pelvis W Con+CT.RAD.BRZ ordered. EDMS EDMS 06:25 06:01 sp4 [facility]
--- NOTE | 2023-09-10 06:02 | ER ---
Nurse's Notes [facility] Name: Greta Luna Age: 43 yrs Sex: Female : 1980 Arrival Date: 09/09/2023 Time: 22:04 Bed 20 Private MD: Diagnosis: Acute recurrent pancreatitis Presentation: 09/08 23:10 Chief complaint: Patient states: n/v abdominal pain. Coronavirus screen: At this time, as6 the client does not indicate any symptoms associated with coronavirus-19. Ebola Screen: No symptoms or risks identified at this time. Initial Sepsis Screen: Does the patient meet any 2 criteria? No. Patient's initial sepsis screen is negative. Does the patient have a suspected source of infection? No. Patient's initial sepsis screen is negative. Risk Assessment: Do you want to hurt yourself or someone else? Patient reports no desire to harm self or others. Onset of symptoms was September 07, 2023. 23:10 Method Of Arrival: Ambulatory as6 23:10 Acuity: EVELYN 3 as6 Triage Assessment: 23:12 General: Appears uncomfortable, Behavior is calm, cooperative. Pain: Complains of pain as6 in abdomen. GI: Reports upper abdominal pain, nausea, vomiting. 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 - Infectious Disease History:: Denies. - Social history:: Smoking status: Patient denies any tobacco usage or history of. Screenin/09 01:44 [facility] ED Fall Risk Assessment (Adult) History of falling in the last 3 months, ha1 including since admission No falls in past 3 months (0 pts) Confusion or Disorientation No (0 pts) Intoxicated or Sedated No (0 pts) Impaired Gait No (0 pts) Mobility Assist Device Used No (0 pt) Altered Elimination No (0 pt) Score/Fall Risk Level 0 - 2 = Low Risk Oriented to surroundings, Maintained a safe environment, Hourly rounding (assess needs \T\ fall precautionary measures) done. Abuse screen: Denies threats or abuse. Denies injuries from another. Nutritional screening: No deficits noted. Tuberculosis screening: No symptoms or risk factors identified. Assessment: 09/08 23:30 General: Appears uncomfortable, Behavior is calm, cooperative. Pain: Complains of pain ha1 in abdomen Pain does not radiate. Pain currently is 10 out of 10 on a pain scale. Neuro: Level of Consciousness is awake, alert, obeys commands, Oriented to person, place, time, situation. Cardiovascular: Capillary refill < 3 seconds Patient's skin is warm and dry. Respiratory: Airway is patent Respiratory effort is even, unlabored, Respiratory pattern is regular, symmetrical. GI: Abdomen is round non-distended, Bowel sounds present X 4 quads. Abd is soft and non tender X 4 quads. Reports lower abdominal pain, upper abdominal pain, nausea, vomiting. Derm: Skin is pink, warm \T\ dry. 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 ha1 01:30 Reassessment: Patient and/or family updated on plan of care and expected duration. Pain ha1 level reassessed. Patient is alert, oriented x 3, equal unlabored respirations, skin warm/dry/pink. 02:30 Reassessment: Patient and/or family updated on plan of care and expected duration. Pain ha1 level reassessed. 03:34 Reassessment: Patient and/or family updated on plan of care and expected duration. Pain ha1 level reassessed. Patient is alert, oriented x 3, equal unlabored respirations, skin warm/dry/pink. 04:50 Reassessment: Patient and/or family updated on plan of care and expected duration. Pain ha1 level reassessed. Patient is alert, oriented x 3, equal unlabored respirations, skin warm/dry/pink. pain 4/10 Patient states feeling better. Patient states symptoms have improved. 05:50 Reassessment: Patient and/or family updated on plan of care and expected duration. Pain ha1 level reassessed. Patient is alert, oriented x 3, equal unlabored respirations, skin warm/dry/pink. 06:40 Reassessment: fax sheet sent. received by AMY Harper. ha1 Vital Signs: 04/08 23:10 BP 121 / 96; Pulse 89; Resp 18 S; Temp 98.4(TE); Pulse Ox 100% on R/A; as6 23:13 Weight 104.33 kg (R); Height 5 ft. 9 in. (R); Pain 8/10; as6 23:30 BP 121 / 69; Pulse 84; Resp 17 S; Pulse Ox 99% on R/A; ha1 09/09 00:30 BP 114 / 78; Pulse 59; Resp 17 S; Pulse Ox 98% on R/A; ha1 01:30 BP 118 / 75; Pulse 61; Resp 17 S; Pulse Ox 98% on R/A; ha1 03:34 BP 135 / 72; Pulse 59; Resp 17 S; Pulse Ox 99% on R/A; ha1 05:02 BP 126 / 64; Pulse 59; Resp 17 S; Pulse Ox 99% on R/A; ha1 06:00 BP 115 / 75; Pulse 59; Resp 17 S; Pulse Ox 100% on R/A; ha1 06:54 BP 125 / 77; Pulse 57; Resp 17 S; Temp 98.2; Pulse Ox 100% ; ha1 04 23:13 Body Mass Index 33.96 (104.33 kg, 175.26 cm) as6 23:13 Pain Scale: Adult as6 ED Course: 09/08 22:18 Patient arrived in ED. ra3 22:24 Jeremias Haywood PA is PHCP. cp 22:24 Ziggy Bonner MD is Attending Physician. cp 23:10 Arm band placed on. as6 23:11 Triage completed. as6 23:15 Patient has correct armband on for positive identification. Placed in gown. Bed in low ha1 position. Call light in reach. Side rails up X 1. Adult w/ patient. 23:30 Missed attempt(s): 22 gauge in right forearm. ha1 23:45 Missed attempt(s): 22 gauge Bleeding controlled, band aid applied, catheter tip intact. ha1 09/09 00:30 Susan Hernandes, AMY is Primary Nurse. ha1 01:06 CBC with Diff Sent. ha1 01:06 CMP Sent. ha1 01:06 Lipase Sent. ha1 01:15 Missed attempt(s): Bleeding controlled, band aid applied, catheter tip intact. vc1 01:18 Missed attempt(s): Bleeding controlled, band aid applied, catheter tip intact. vc1 01:23 Missed attempt(s): Bleeding controlled, band aid applied, catheter tip intact. vc1 01:29 Inserted saline lock: 20 gauge in right forearm, using aseptic technique. cm10 01:40 XRAY Chest (1 view) In Process Unspecified. EDMS 03:10 Abdomen In Process Unspecified. EDMS 06:01 Pj Pascual is Hospitalizing Provider. sp4 06:10 Assisted provider with central line placement. Set up central line tray. Triple lumen ha1 line placed in right internal jugular. Line placed by Ziggy Bonner MD Placement verified by CXR, blood return, Dressed with 4X4s, Tape, Tegaderm, Patient tolerated well. Before procedure, did Practitioner(s) obtain informed consent? Yes. Patient \T\ family education about procedure, CLABSI prevention and S/S of infection? Yes. Time-out/Briefing performed prior to start of procedure? Yes. Was handwashing/sanitizing done immediately prior to procedure? Yes. Was patient positioned to in a way to prevent air embolism? Yes. Was procedure site sterilized? Yes, with chlorhexidine. Was the site allowed to dry? Yes. Was local anesthetic and/or sedation utilized? Yes. During the procedure, did the Practitioner(s) maintain a sterile field? Yes. Was blood aspirated from each lumen? Yes. 06:31 Chest Single View XRAY In Process Unspecified. EDMS Administered Medications: 01:35 Drug: Famotidine IVP 20 mg IVP once; dilute with 10 mL 0.9% NaCl; give over 2 minutes ha1 Route: IVP; Site: left forearm; 02:00 Follow up: Response: No adverse reaction; Marked relief of symptoms ha1 01:40 Drug: Ondansetron IVP 4 mg IVP once; over 2 minutes {Note: GIVEN IM CARE PROVIDER ha1 DISCRETION .} Route: IVP; Site: Other; 02:00 Follow up: Response: No adverse reaction; Marked relief of symptoms ha1 01:42 Drug: morphine IVP or IV 4 mg IVP once over 4 mins {Note: GIVEN IM . CARE PROVIDER ha1 DISCRETION .} Route: IVP; Infused Over: 4 mins; Site: Other; 02:00 Follow up: Response: No adverse reaction; Pain is decreased; RASS: Alert and Calm (0) ha1 03:47 Drug: Zofran IM 4 mg IM once Route: IM; Site: right ventrogluteal; ha1 03:50 Drug: Promethazine IM 25 mg IM once Route: IM; Site: left ventrogluteal; ha1 03:52 Drug: morphine IM 4 mg IM once Route: IM; Site: right deltoid; ha1 04:02 Not Given (Duplicate Order): morphineor iv 4 mg IVP once over 4 mins ha1 04:02 Not Given (Duplicate Order): ondansetron 4 mg IVP once; over 2 minutes ha1 06:30 Drug: NS 0.9% IV 1000 ml IV at 1 bolus Per protocol; 1000 mL bolus Route: IV; Rate: 1 ha1 bolus; Site: right jugular; 06:53 Follow up: Response: No adverse reaction; IV Status: Infusion continued ha1 06:30 Drug: NS 0.9% IV 1000 ml IV at 125 ml/hr continuous Route: IV; Rate: 125 ml/hr; Site: ha1 right jugular; 06:52 Follow up: Response: No adverse reaction; IV Status: Infusion continued ha1 06:31 Drug: Ondansetron IVP 4 mg IVP once; over 2 minutes Route: IVP; Site: right jugular; ha1 06:53 Follow up: Response: No adverse reaction; Marked relief of symptoms; Nausea is decreasedha1 06:33 Drug: morphine IVP or IV 4 mg IVP once over 4 mins Route: IVP; Infused Over: 4 mins; ha1 Site: right jugular; 06:53 Follow up: Response: No adverse reaction; Marked relief of symptoms; Pain is decreased; ha1 RASS: Alert and Calm (0) 06:39 Drug: NS 0.9% IV 1000 ml IV at 1 bolus Per protocol; 1000 mL bolus Route: IV; Rate: 1 ha1 bolus; Site: right jugular; 06:51 Follow up: Response: No adverse reaction; IV Status: Infusion continued ha1 Medication: 01:45 VIS not applicable for this client. ha1 Outcome: 06:01 Decision to Hospitalize by Provider. sp4 07:23 Patient left the ED. bp Signatures: [facility] Jeremias Haywood PA PA cp Peltier, Brian, RN RN bp Joshua Cantu, RN RN as6 Seb, Lauren, RN RN vc1 Susan Hernandes, RN RN ha1 Ziggy Bonner MD MD sp4 Emmanuel Vidal, RN RN cm10 Kimmie Priest ra3
[2023-09-10] MEDS ORDERED: SODIUM CHLORIDE 0.9% 10ML INJ IV PRN (06:08)
[2023-09-10] MEDS ORDERED: MORPHINE 4 MG/ML SYR IV PRN (06:08)
--- NOTE | 2023-09-10 06:08 | P.HP ---
Certification for Inpatient Patient admitted to: Inpatient With expected LOS: >2 Midnights Patient will require the following post-hospital care: None Practitioner: I am a practitioner with admitting privileges, knowledge of patient current condition, hospital course, and medical plan of care. Services: Services provided to patient in accordance with Admission requirements found in Title 42 Section 412.3 of the Code of Federal Regulations <Rekha Cruzlen - Last Filed: 09/10/23 12:26> Patient History Date of Service: 09/10/23 Reason for admission: acute pancreatitis History of Present Illness: Ms. Briscoe is a 43-year-old with a past medical history of pancreatitis, endometriosis, anemia, and past drug abuse. She has been weaning off Suboxone. She has a 4-day history of upper abdominal pain nausea and vomiting. She presented to the emergency department last p.m. with volume depletion and difficulty with IV initiation. A central line to the right IJ was initiated. Laboratory evaluation revealed, a white count of 11.6, stable H&H at 13.1 and 39.9. Electrolytes and liver enzymes within normal limits, lipase elevated at 206. Her urine is positive for bacteria 20-[address] evaluation reveals, " acute uncomplicated pancreatitis... Hepatomegaly and hepatic steatosis". Apparently a gallbladder ultrasound was performed approximately 4 days ago which was essentially negative. We will admit to the hospital to continue IV fluids and pain control for pancreatitis, and antibiotics for UTI post blood culture and urine culture collection Home medications list reviewed: Yes - Past Medical/Surgical History Diabetic: No -: Paroxsymal Atrial Fibrillation -: Endometriosis -: Iron Deficiency Anemia -: Drug Abuse -: x 2 -: Endometrial Mass Excision Psychosocial/ Personal History: Patient is x 20 yrs. + children - Family History Mother -: Heart disease - Social History Smoking Status: Unknown if ever smoked Alcohol use: No CD- Drugs: No Caffeine use: Yes Place of Residence: Home <Rekha Cruz Rishi - Last Filed: 09/10/23 12:26> Date of Service: 09/10/23 <Mika Valenzuela C - Last Filed: 09/10/23 14:38> Allergies acetaminophen [From Darvocet-N 100] Allergy (Mild, Verified 09/23/11 15:15) Nausea/Vomiting propoxyphene napsylate [From Darvocet-N 100] Allergy (Mild, Verified 09/23/11 15:15) Nausea/Vomiting Home Medications: Ondansetron [Zofran] 4 mg PO Q6H PRN #30 tab 06/14/22 Buprenorphine HCl/Naloxone HCl [Suboxone 2 mg-0.5 mg Tablet] 1 each SL BID 09/10/23 Review of Systems 10-point ROS is otherwise unremarkable General: Weakness, Malaise Gastrointestinal: Nausea, Vomiting, Abdominal Pain, As per HPI <Rekha Cruz - Last Filed: 09/10/23 12:26> Physical Examination - Physical Exam General: In no apparent distress, Oriented x3 HEENT: Atraumatic, Normocephalic Neck: Supple, 2+ carotid pulse no bruit Respiratory: Clear to auscultation bilaterally, Normal air movement Cardiovascular: No edema, Normal pulses, Regular rate/rhythm Capillary refill: <2 Seconds Gastrointestinal: Normal bowel sounds, Non-distended, Tenderness (upper abdomen) Musculoskeletal: No clubbing, No swelling Integumentary: No rashes Neurological: Normal speech, Normal tone Lymphatics: No axilla or inguinal lymphadenopathy External genitalia: Deferred Rectal: Deferred - Studies Laboratory Data (last 24 hrs) 09/10/23 09/10/23 01:00 01:00 WBC 11.60 H Hgb 13.1 Hct 39.9 Plt Count 337 Sodium 138 Potassium 4.0 BUN 13 Creatinine 0.95 Glucose 119 H Total Bilirubin 0.6 AST 26 ALT 39 Alkaline Phosphatase 87 Lipase 206 H <Rekha Cruz - Last Filed: 09/10/23 12:26> - Studies Laboratory Data (last 24 hrs) 09/10/23 09/10/23 01:00 01:00 WBC 11.60 H Hgb 13.1 Hct 39.9 Plt Count 337 Sodium 138 Potassium 4.0 BUN 13 Creatinine 0.95 Glucose 119 H Total Bilirubin 0.6 AST 26 ALT 39 Alkaline Phosphatase 87 Lipase 206 H <Mika Valenzuela - Last Filed: 09/10/23 14:38> Assessment and Plan - Plan Acute pancreatitis: NPO Pain control IVF CT performed in ED. Will obtain Gallbladder US (cancelled - pt had US 4 days ago, essentially negative) UTI: Urine culture Rocephin 1gm IVPB daily Volume depletion: NS at 150ml/hr Electrolyte monitoring and replacement History of Drug Abuse on Suboxone: Balance pain management and amount/frequency of narcotics given DVT prophylaxis: Lovenox GI prophylaxis: Protonix q 12h - Advance Directives Does patient have a Living Will: No Does patient have a Durable POA for Healthcare: No <Rekha Cruz Rishi - Last Filed: 09/10/23 12:26> - Plan Pt seen and examined. I agree with the note by the CURING ROOM SUPERVISOR. Pt is a 43 yo female with past medical history of pancreatitis, endometriosis, anemia, and past drug abuse who presents with epigastric pain. Pt reports that she had alcohol during . On admission, lab studies show llipase of 206. Triglyceride is normal. LFTs are within normal limit. At bedside, pt is in NAD. CT abd shows acute uncomplicated pancreatitis, hepatomegaly and hepatic steatosis. Gall bladder ultrasound from 4 days ago was negative for gall stones. At bedside, pt is in NAD. A/P: Acute pancreatitis: Will keep pt NPO. Continue IVF at 150 cc/hr and prn pain med. Continue iv abx for UTI. f/u urine cx. Pt was advised to lose weight. Hx of drug abuse: pt is on suboxone at home. <Mika Valenzuela - Last Filed: 09/10/23 14:38>
[2023-09-10] MEDS ORDERED: NA CHLORIDE 0.9% 2,000 ML ONE (06:16)
[2023-09-10] MEDS: NA CHLORIDE 0.9% 1,000 ML IV SCH (07:00)
[2023-09-10] MEDS: INSULIN REGULAR (HUMAN) 100 UNIT/ML SQ SCH (07:30)
--- NOTE | 2023-09-10 07:52 | RAD REPORT ---
EXAM DESCRIPTION: US - Abdomen Exam Limited - 09/10/2023 6:58 am CLINICAL HISTORY: Abdominal pain. COMPARISON: 2022 FINDINGS: The gallbladder wall is not thickened. A gallstone is not seen. The biliary tree is normal caliber. IMPRESSION: Unremarkable gallbladder ultrasound.
--- NOTE | 2023-09-10 08:33 | RAD REPORT ---
EXAM DESCRIPTION: RAD - Chest Single View - 09/10/2023 6:29 am CLINICAL HISTORY: Right CVL placement COMPARISON: 09/10/2023 FINDINGS: Single frontal view of the chest. Tubes and lines: Interval placement of right IJ central venous catheter tip in the SVC. Cardiomediastinal silhouette: Stable Lungs: No consolidation, pneumothorax, or pleural effusion. Bones: Stable. Upper abdomen: Stable. IMPRESSION: Right IJ central venous catheter with tip in the SVC. Electronically signed by: Simón Crowley DO 09/10/2023 06:38 AM CDT M Due to temporary technical issues with the PACS/Fluency reporting system, reports are being signed by the in house radiologists without review as a courtesy to insure prompt reporting. The interpreting radiologist is fully responsible for the content of the report.
[2023-09-10] MEDS: CEFTRIAXONE 1,000 MG in NA CHLORIDE 0.9% 50 ML IVPB SCH (09:38)
[2023-09-10] MEDS: PANTOPRAZOLE 40 MG INJ IVP SCH (09:38)
[2023-09-10 09:42] VITALS: BMI 34.0
[2023-09-10 11:32] LABS: Absolute Basophils 0.1 K/uL (0-0.5); Absolute Eosinophils 0.5 K/uL (0-0.5); Absolute Lymphocytes (CBC) 1.8 K/uL (0.7-4.9); Absolute Monocytes 0.5 K/uL (0.1-1.3); Absolute Neutrophil 7.5 K/uL (1.8-8.0); Basophils % 0.6 % (0-1.3); Eosinophils % 4.9 % (0-4.4); Hematocrit 35.3 % (36.0-45.0); Hemoglobin 12.1 g/dL (12.0-15.0); Lymphocytes % 17.5 % (15.3-44.8); MCH 30.8 pg (27.0-35.0); MCHC 34.2 g/dL (32.0-36.0); MCV 90.1 fL (80-100); MPV 8.5 fL (7.6-11.3); Monocytes % 5.1 % (3.3-12.3); Neutrophils % 71.9 % (41.7-73.7); Platelets 289 thou/uL (152-406); RBC Red Blood Cell Count 3.92 M/uL (3.86-4.86); Red Cell Distribution Width 13.5 % (12.1-15.2)
[2023-09-10 11:57] LABS: Albumin 3.5 g/dL (3.4-5.0); Anion Gap 8.8 mEq/L (5.0-15.0); Bilirubin Total 0.6 mg/dL (0.2-1.0); Globulin 3.4 g/dL (2.3-3.5); Magnesium 1.8 mg/dL (1.6-2.4); Potassium 3.8 mEq/L (3.5-5.1); Protein, Total 6.9 g/dL (6.4-8.2)
--- NOTE | 2023-09-10 13:03 | RAD REPORT ---
EXAM DESCRIPTION: RAD - Chest Single View - 09/10/2023 1:39 am CLINICAL HISTORY: Epigastric pain COMPARISON: None. FINDINGS: Single frontal radiograph view of the chest. Cardiomediastinal silhouette: Normal size and contour. Lungs: No consolidation, pneumothorax, or pleural effusion. Bones: No acute osseous abnormality. Upper abdomen: No abnormality identified. IMPRESSION: 1. No acute pulmonary process identified. Electronically signed by: Simón Crowley DO 09/10/2023 01:58 AM CDT M Due to temporary technical issues with the PACS/Fluency reporting system, reports are being signed by the in house radiologists without review as a courtesy to insure prompt reporting. The interpreting radiologist is fully responsible for the content of the report.
--- NOTE | 2023-09-10 13:32 | RAD REPORT ---
EXAM DESCRIPTION: CT - Abdomen Pelvis Wo Contrast - 09/10/2023 7:09 am CLINICAL HISTORY: The patient is 43 years old and is Female; ABD PAIN IV ONLY Bed Name: 20 TECHNIQUE: Axial computed tomography images of the abdomen and pelvis without intravenous contrast. Sagittal and coronal reformatted images were created and reviewed. This CT exam was performed usi ng one or more of the following dose reduction techniques: automated exposure control, adjustment o f the mA and/or kV according to patient size, and/or use of iterative reconstruction technique. COMPARISON: 09/05/2022 CT abdomen pelvis with contrast FINDINGS: LUNG BASES: Unremarkable No mass. No consolidation. ABDOMEN: LIVER: Fatty infiltration of the liver. Mild hepatomegaly. GALLBLADDER AND BILE DUCTS: Unremarkable No calcified stones. No ductal dilation. PANCREAS: Moderate fat stranding demonstrated about the pancreas, with appearance most consistent w ith acute uncomplicated pancreatitis. No pancreatic ductal dilatation or suspicious solid or cystic masses identified on this nonco ntrasted exam. SPLEEN: Unremarkable No splenomegaly. ADRENALS: Unremarkable No mass. KIDNEYS AND URETERS: Unremarkable No obstructing stones. No hydronephrosis. STOMACH AND BOWEL: Unremarkable No obstruction. No mucosal thickening. PELVIS: APPENDIX: No findings to suggest acute appendicitis. BLADDER: Unremarkable No stones. REPRODUCTIVE: Unremarkable as visualized. ABDOMEN and PELVIS: INTRAPERITONEAL SPACE: Unremarkable No free air. No significant fluid collection. BONES/JOINTS: No acute fracture. No dislocation. SOFT TISSUES: Small fat-containing umbilical hernia. VASCULATURE: Unremarkable No abdominal aortic aneurysm. LYMPH NODES: Unremarkable No enlarged lymph nodes. TUBES, LINES AND DEVICES: Postsurgical changes in the inferior midline abdominal wall/pelvis. Query remote or supra pubic catheter placement. IMPRESSION: 1. Acute uncomplicated pancreatitis, allowing for lack of intravenous contrast. 2. Hepatomegaly and hepatic steatosis. Electronically signed by: Anil Oliveira MD 09/10/2023 03:32 AM CDT Due to temporary technical issues with the PACS/Fluency reporting system, reports are being signed by the in house radiologists without review as a courtesy to insure prompt reporting. The interpreting radiologist is fully responsible for the content of the report.
[2023-09-10] MEDS: PROMETHAZINE INJ 25 MG/ML AMP IV PRN (13:47)
[2023-09-10] MEDS: MORPHINE 4 MG/ML SYR IV PRN (14:18)
[2023-09-10] MEDS: MAGNESIUM SULFATE 1 gm IVPB 1 GM/100 ML BAG IV ONE (16:28)
[2023-09-10] MEDS: ENOXAPARIN 40 MG/0.4 ML SQ SCH (16:29)
[2023-09-11] MEDS: ACETAMINOPHEN 325 MG TABLET PO PRN (00:33)
[2023-09-11] MEDS: LORAZEPAM 1 MG TABLET PO ONE ×2 (01:54→22:37)
[2023-09-11] MEDS: MORPHINE 2 MG/ML SYR IV PRN (02:00)
[2023-09-11 08:23] LABS: Albumin 3.2 g/dL (3.4-5.0); Albumin/Globulin Ratio 0.9 (1.1-1.8); Anion Gap 9.7 mEq/L (5.0-15.0); Bilirubin Total 0.6 mg/dL (0.2-1.0); Globulin 3.4 g/dL (2.3-3.5); Magnesium 2.2 mg/dL (1.6-2.4); Potassium 3.7 mEq/L (3.5-5.1); Protein, Total 6.6 g/dL (6.4-8.2)
[2023-09-11 08:32] LABS: Absolute Eosinophils 0.4 K/uL (0-0.5); Absolute Lymphocytes (CBC) 2.2 K/uL (0.7-4.9); Absolute Monocytes 0.4 K/uL (0.1-1.3); Absolute Neutrophil 5.3 K/uL (1.8-8.0); Basophils % 0.4 % (0-1.3); Eosinophils % 4.3 % (0-4.4); Hematocrit 34.7 % (36.0-45.0); Hemoglobin 11.7 g/dL (12.0-15.0); Lymphocytes % 26.5 % (15.3-44.8); MCH 30.5 pg (27.0-35.0); MCHC 33.8 g/dL (32.0-36.0); MCV 90.2 fL (80-100); MPV 8.5 fL (7.6-11.3); Monocytes % 5.3 % (3.3-12.3); Neutrophils % 63.5 % (41.7-73.7); Platelets 265 thou/uL (152-406); RBC Red Blood Cell Count 3.85 M/uL (3.86-4.86); Red Cell Distribution Width 13.4 % (12.1-15.2)
--- NOTE | 2023-09-11 11:05 | P.PN ---
Subjective Date of Service: 09/11/23 Chief Complaint: acute pancreatitis Pt is resting comfortably in bed. Abd pain is improving. Pt is very hungry and wants to eat. Will start CLD. No other complaints. Review of Systems General: Unremarkable Eyes: Unremarkable ENT: Unremarkable Respiratory: Unremarkable Cardiovascular: Unremarkable Gastrointestinal: Unremarkable Genitourinary: Unremarkable Musculoskeletal: Unremarkable Integumentary: Unremarkable Neurological: Unremarkable Lymphatics: Unremarkable Physical Examination - Vital Signs Temperature: 97.0 F Blood Pressure: 133/67 Pulse: 60 Respirations: 18 Pulse Ox (%): 98 - Physical Exam General: Alert, In no apparent distress, Oriented x3 HEENT: Atraumatic, Normocephalic, PERRLA Neck: Supple, 2+ carotid pulse no bruit, JVD not distended Respiratory: Clear to auscultation bilaterally, Normal air movement Cardiovascular: No edema, Normal pulses, Regular rate/rhythm, Normal S1 S2 Capillary refill: <2 Seconds Gastrointestinal: Normal bowel sounds, Soft and benign, Non-distended, Tenderness Musculoskeletal: No clubbing, No swelling Integumentary: No rashes, No breakdown Neurological: Normal gait, Normal speech, Normal strength at 5/5 x4 extr, Normal tone, Sensation intact Assessment And Plan - Plan Acute pancreatitis: Continue IVF at 150 cc/hr, CLD and prn pain med. Lipase is 77 <- 206. UTI: Continue rocephin and f/u urine cx. Morbid obesity: Pt was advised to lose weight. Hx of drug abuse: pt is on suboxone at home. I told her to ask one of her family members to bring it to the hospital. DVT ppx: heparin Dispo: Pending hospital course.
[2023-09-12 08:53] LABS: Absolute Eosinophils 0.4 K/uL (0-0.5); Absolute Lymphocytes (CBC) 2.3 K/uL (0.7-4.9); Absolute Monocytes 0.3 K/uL (0.1-1.3); Absolute Neutrophil 2.8 K/uL (1.8-8.0); Basophils % 0.8 % (0-1.3); Hematocrit 33.5 % (36.0-45.0); Hemoglobin 11.5 g/dL (12.0-15.0); Lymphocytes % 39.3 % (15.3-44.8); MCH 30.9 pg (27.0-35.0); MCHC 34.2 g/dL (32.0-36.0); MCV 90.4 fL (80-100); MPV 8.7 fL (7.6-11.3); Monocytes % 5.5 % (3.3-12.3); Neutrophils % 47.4 % (41.7-73.7); Platelets 267 thou/uL (152-406); RBC Red Blood Cell Count 3.71 M/uL (3.86-4.86); Red Cell Distribution Width 13.5 % (12.1-15.2)
[2023-09-12 09:18] LABS: Albumin 3.1 g/dL (3.4-5.0); Albumin/Globulin Ratio 0.9 (1.1-1.8); Anion Gap 6.9 mEq/L (5.0-15.0); Bilirubin Total 0.3 mg/dL (0.2-1.0); Globulin 3.3 g/dL (2.3-3.5); Magnesium 2.1 mg/dL (1.6-2.4); Potassium 3.9 mEq/L (3.5-5.1); Protein, Total 6.4 g/dL (6.4-8.2)
--- NOTE | 2023-09-12 09:49 | P.PN ---
Subjective Date of Service: 09/12/23 Chief Complaint: acute pancreatitis Subjective: Improving (tolerating clear liquids but tried Ensure (full liquid) and "it didn't go well") <Rekha Cruz - Last Filed: 09/12/23 09:46> Date of Service: 09/12/23 <Mika Valenzuela - Last Filed: 09/12/23 11:48> Review of Systems 10-point ROS is otherwise unremarkable Gastrointestinal: As per HPI <Rekha Cruz - Last Filed: 09/12/23 09:46> Physical Examination - Vital Signs Temperature: 96.8 F Blood Pressure: 122/75 Pulse: 65 Respirations: 17 Pulse Ox (%): 96 - Physical Exam General: Alert, In no apparent distress, Oriented x3 HEENT: Atraumatic, Normocephalic Neck: JVD not distended Respiratory: Normal air movement Cardiovascular: Normal pulses Capillary refill: <2 Seconds Gastrointestinal: Normal bowel sounds, Soft and benign Musculoskeletal: No clubbing, No swelling Integumentary: No breakdown Neurological: Normal speech, Normal tone Lymphatics: No axilla or inguinal lymphadenopathy External genitalia: Deferred Rectal: Deferred <Rekha Cruz - Last Filed: 09/12/23 09:46> Assessment And Plan - Plan Acute pancreatitis: NPO advanced to CL yesterday, advance to full liquid today with plan to dc later today, tomorrow am Pain control IVF CT performed in ED. Will obtain Gallbladder US (cancelled - pt had US 4 days ago, essentially negative) UTI: Urine culture Rocephin 1gm IVPB daily, change to po abx today Volume depletion: NS at 150ml/hr Electrolyte monitoring and replacement History of Drug Abuse on Suboxone: Balance pain management and amount/frequency of narcotics given DVT prophylaxis: Lovenox GI prophylaxis: Protonix q 12h Discharge Plan: Home Plan to discharge in: 24 Hours <Rekha Cruz - Last Filed: 09/12/23 09:46> - Plan Pt seen and examined. I agree withe the note by the PARTS DEPARTMENT MANAGER. Pt had abdominal pain after taking Ensure. Will continue NPO , IVF and prn pain med. Will alos give prn ativan for anxiety. <Mika Valenzuela - Last Filed: 09/12/23 11:48>
[2023-09-12] MEDS: LORazepam 2 MG/ML VIAL IV ONE (11:21)
[2023-09-12] MEDS: LORAZEPAM 0.5 MG TABLET PO PRN (23:45)
[2023-09-13 07:07] LABS: Absolute Basophils 0.1 K/uL (0-0.5); Absolute Eosinophils 0.4 K/uL (0-0.5); Absolute Lymphocytes (CBC) 2.3 K/uL (0.7-4.9); Absolute Monocytes 0.3 K/uL (0.1-1.3); Absolute Neutrophil 2.3 K/uL (1.8-8.0); Eosinophils % 7.3 % (0-4.4); Hematocrit 30.9 % (36.0-45.0); Hemoglobin 10.6 g/dL (12.0-15.0); Lymphocytes % 43.1 % (15.3-44.8); MCH 30.8 pg (27.0-35.0); MCHC 34.3 g/dL (32.0-36.0); MCV 89.8 fL (80-100); MPV 8.1 fL (7.6-11.3); Neutrophils % 42.6 % (41.7-73.7); Nucleated Red Blood Cells % 0.2 % (0-0); Platelets 279 thou/uL (152-406); RBC Red Blood Cell Count 3.44 M/uL (3.86-4.86); Red Cell Distribution Width 13.4 % (12.1-15.2)
[2023-09-13 07:32] LABS: Albumin 2.9 g/dL (3.4-5.0); Anion Gap 5.6 mEq/L (5.0-15.0); Bilirubin Total 0.3 mg/dL (0.2-1.0); Potassium 3.6 mEq/L (3.5-5.1); Protein, Total 5.9 g/dL (6.4-8.2)
--- NOTE | 2023-09-13 08:19 | P.PN ---
Subjective Date of Service: 09/13/23 Chief Complaint: acute pancreatitis Tolerated CL yesterday, wants to try full liquids tonight. Pt was "emotional" per her own report yesterday. States she is agreeable to tx plan and was frustrated for other stressors. <Rekha Curz - Last Filed: 09/13/23 08:14> Date of Service: 09/13/23 <Mika Valenzuela - Last Filed: 09/13/23 13:05> Review of Systems 10-point ROS is otherwise unremarkable General: Weakness, Malaise Gastrointestinal: Nausea, Abdominal Pain <Rekha Cruz - Last Filed: 09/13/23 08:14> Physical Examination - Vital Signs Temperature: 97.4 F Blood Pressure: 122/61 Pulse: 81 Respirations: 17 Pulse Ox (%): 95 - Physical Exam General: Alert, In no apparent distress, Oriented x3 HEENT: Atraumatic, Normocephalic Neck: JVD not distended Respiratory: Normal air movement Cardiovascular: Normal pulses, Regular rate/rhythm Capillary refill: <2 Seconds Gastrointestinal: Tenderness (mild) Musculoskeletal: No clubbing, No swelling Integumentary: No rashes Neurological: Normal speech, Normal tone Lymphatics: No axilla or inguinal lymphadenopathy External genitalia: Deferred Rectal: Deferred - Studies Microbiology Data (last 24 hrs): 09/10/23 00:29 Clean Catch Urine [place] Count - Final >100,000 CFU/ML. 09/10/23 00:29 Clean Catch Urine - Final Escherichia Coli Esbl <Rekha Cruz - Last Filed: 09/13/23 08:14> - Studies Microbiology Data (last 24 hrs): 09/10/23 00:29 Clean Catch Urine [place] Count - Final >100,000 CFU/ML. 09/10/23 00:29 Clean Catch Urine - Final Escherichia Coli Esbl <Mika Valenzuela - Last Filed: 09/13/23 13:05> Assessment And Plan - Plan Acute pancreatitis: NPO advanced to CL yesterday, advance to full liquid today with plan change as Urine culture result + for ESBL Pain control IVF UTI: Urine culture Rocephin 1gm IVPB daily, plan change as Urine culture result + for ESBL (pt is a very difficult stick and currently has an IJ, Will request PICC line, Rocephin switched to Merrem. (awaiting final sensitivity) Volume depletion: NS at 150ml/hr Electrolyte monitoring and replacement History of Drug Abuse on Suboxone: Balance pain management and amount/frequency of narcotics given DVT prophylaxis: Lovenox GI prophylaxis: Protonix q 12h <Rekha Cruz - Last Filed: 09/13/23 08:14> - Plan Pt seen and examined. I agree with the note by the DINKER. Urine cx is growing ESBL E. coli. Will change rocephin to merrem. HEr abd pain is better. Will start full liquid diet today. Continue IVF and prn pain med. <Mika Valenzuela - Last Filed: 09/13/23 13:05>
[2023-09-13] MEDS: Mupirocin NASAL 2 APPL/1 GM TUBE NAS SCH (08:37)
[2023-09-13] MEDS: Meropenem 1,000 MG in NA CHLORIDE 0.9% 100 ML IV SCH (08:38)
[2023-09-13] MEDS: KCL 20 MEQ/100 mL IVPB 20 MEQ/100 ML BAG IV SCH (11:41)
[2023-09-14 03:03] LABS: Absolute Basophils 0.1 K/uL (0-0.5); Absolute Eosinophils 0.4 K/uL (0-0.5); Absolute Lymphocytes (CBC) 2.4 K/uL (0.7-4.9); Absolute Monocytes 0.3 K/uL (0.1-1.3); Absolute Neutrophil 2.7 K/uL (1.8-8.0); Basophils % 1.1 % (0-1.3); Eosinophils % 6.5 % (0-4.4); Hematocrit 31.5 % (36.0-45.0); Hemoglobin 10.9 g/dL (12.0-15.0); MCHC 34.5 g/dL (32.0-36.0); MCV 89.8 fL (80-100); MPV 8.1 fL (7.6-11.3); Monocytes % 5.2 % (3.3-12.3); Neutrophils % 46.2 % (41.7-73.7); Platelets 287 thou/uL (152-406); RBC Red Blood Cell Count 3.51 M/uL (3.86-4.86); Red Cell Distribution Width 13.2 % (12.1-15.2)
[2023-09-14 03:37] LABS: Anion Gap 7.7 mEq/L (5.0-15.0); Potassium 3.7 mEq/L (3.5-5.1)
[2023-09-14] MEDS: POTASSIUM CL SA 10 MEQ TAB PO ONE (08:02)
--- NOTE | 2023-09-14 09:38 | P.PN ---
Subjective Date of Service: 09/14/23 Chief Complaint: acute pancreatitis Subjective: Tolerating diet, Improving Tolerated full liquids 09/12. PICC placed to right upper arm. C/O tenderness. <Rekha Cruz - Last Filed: 09/14/23 09:33> Date of Service: 09/14/23 <Mika Valenzuela C - Last Filed: 09/14/23 12:40> Review of Systems 10-point ROS is otherwise unremarkable General: As per HPI Gastrointestinal: As per HPI <Rekha Cruz - Last Filed: 09/14/23 09:33> Physical Examination - Vital Signs Temperature: 97.9 F Blood Pressure: 104/52 Pulse: 66 Respirations: 16 Pulse Ox (%): 99 - Physical Exam General: Alert, In no apparent distress, Oriented x3 HEENT: Atraumatic, Normocephalic Neck: JVD not distended Respiratory: Normal air movement Cardiovascular: Normal pulses, Regular rate/rhythm Capillary refill: <2 Seconds Gastrointestinal: Soft and benign Musculoskeletal: No clubbing, No swelling Integumentary: No rashes Neurological: Normal speech, Normal tone Lymphatics: No axilla or inguinal lymphadenopathy External genitalia: Deferred Rectal: Deferred - Studies Microbiology Data (last 24 hrs): 09/10/23 00:29 Clean Catch Urine [place] Count - Final >100,000 CFU/ML. 09/10/23 00:29 Clean Catch Urine - Final Escherichia Coli Esbl <Rekha Cruz - Last Filed: 09/14/23 09:33> Assessment And Plan - Plan Acute pancreatitis: full liquid 09/12, advance as tolerated Pain control IVF UTI: Urine culture Rocephin 1gm IVPB daily, plan change as Urine culture result + for ESBL (pt is a very difficult stick and currently has an IJ, Will request PICC line, Rocephin switched to Merrem. (awaiting final sensitivity) Pt has PICC to right upper arm, tender, will US to allow use, will dc IJ if no issues with PICC Volume depletion: NS at 150ml/hr Electrolyte monitoring and replacement History of Drug Abuse on Suboxone: Balance pain management and amount/frequency of narcotics given DVT prophylaxis: Lovenox GI prophylaxis: Protonix q 12h <Rekha Cruz - Last Filed: 09/14/23 09:33> - Plan Pt seen and examined. I agree withe the note by the ALTERNATIVE MEDICINE PRACTITIONER. She has mild abdominal pain, tolerating a little bit of full liquid diet. Will continue merrem for ESBL E.coli. <Mika Valenzuela - Last Filed: 09/14/23 12:40>
--- NOTE | 2023-09-14 12:04 | RAD REPORT ---
EXAM DESCRIPTION: US - UPPER EXTREMITY VENOUS UNILATE - 09/14/2023 11:33 am CLINICAL HISTORY: Right upper extremity pain COMPARISON: None. FINDINGS: The right internal jugular, subclavian, brachial, axillary, cephalic, radial and ulnar vei ns demonstrate phasic signal. The basilic vein at not seen secondary to overlying bandage The veins are generally compressible. Doppler demonstrates good flow Grayscale, color and spectral analysis performed on all vessels PICC line in place IMPRESSION: No evidence of thrombus involving the right upper extremity
[2023-09-14] MEDS: LORazepam 2 MG/ML VIAL IV ONE (14:04)
[2023-09-15] VITALS: O2SAT 95
[2023-09-15 04:11] LABS: Absolute Basophils 0.1 K/uL (0-0.5); Absolute Eosinophils 0.4 K/uL (0-0.5); Absolute Lymphocytes (CBC) 2.3 K/uL (0.7-4.9); Absolute Monocytes 0.4 K/uL (0.1-1.3); Absolute Neutrophil 3.2 K/uL (1.8-8.0); Basophils % 0.8 % (0-1.3); Eosinophils % 6.3 % (0-4.4); Hematocrit 32.4 % (36.0-45.0); Hemoglobin 11.1 g/dL (12.0-15.0); Lymphocytes % 36.8 % (15.3-44.8); MCH 30.8 pg (27.0-35.0); MCHC 34.4 g/dL (32.0-36.0); MCV 89.6 fL (80-100); MPV 7.8 fL (7.6-11.3); Monocytes % 6.1 % (3.3-12.3); Nucleated Red Blood Cells % 0.2 % (0-0); Platelets 300 thou/uL (152-406); RBC Red Blood Cell Count 3.62 M/uL (3.86-4.86); Red Cell Distribution Width 13.3 % (12.1-15.2)
[2023-09-15 04:25] LABS: Anion Gap 8.7 mEq/L (5.0-15.0); Potassium 3.7 mEq/L (3.5-5.1)
[2023-09-15] MEDS: POTASSIUM CL SA 10 MEQ TAB PO ONE (08:51)
--- NOTE | 2023-09-15 11:00 | P.PN ---
Subjective Date of Service: 09/15/23 Chief Complaint: acute pancreatitis Pt is resting comfortably in bed. Abd pain is improving. Pt is tolerating full liquid diet. She is getting iv merrem for ESBL E. coli. No other complaints. Review of Systems General: Unremarkable Eyes: Unremarkable ENT: Unremarkable Respiratory: Unremarkable Cardiovascular: Unremarkable Gastrointestinal: Abdominal Pain Genitourinary: Unremarkable Musculoskeletal: Unremarkable Integumentary: Unremarkable Neurological: Unremarkable Lymphatics: Unremarkable Physical Examination - Vital Signs Temperature: 98.9 F Blood Pressure: 97/55 Pulse: 74 Respirations: 16 Pulse Ox (%): 95 - Physical Exam General: Alert, In no apparent distress, Oriented x3 HEENT: Atraumatic, Normocephalic, PERRLA Neck: Supple, 2+ carotid pulse no bruit Respiratory: Clear to auscultation bilaterally, Normal air movement, Diminished Cardiovascular: No edema, Normal pulses, Regular rate/rhythm, Normal S1 S2 Capillary refill: <2 Seconds Gastrointestinal: Normal bowel sounds, Soft and benign, Non-distended, Tenderness Musculoskeletal: No clubbing, No swelling Integumentary: No rashes, No breakdown Neurological: Normal gait, Normal speech, Normal strength at 5/5 x4 extr Assessment And Plan - Plan Acute pancreatitis: Continue IVF at 150 cc/hr, FLD and prn pain med. Lipase is 77 <- 206. UTI: Continue iv merrem. off iv rocephin. urine cx is growing ESBL E. coli. Morbid obesity: Pt was advised to lose weight. Hx of drug abuse: pt is on suboxone at home. I told her to ask one of her family members to bring it to the hospital. DVT ppx: heparin Dispo: Pending hospital course.
[2023-09-15] MEDS: GABAPENTIN 100 MG CAP PO SCH (13:25)
[2023-09-15] MEDS ORDERED: GABAPENTIN 100 MG CAP PO SCH (14:00)
[2023-09-16 06:38] LABS: Absolute Eosinophils 0.3 K/uL (0-0.5); Absolute Lymphocytes (CBC) 1.6 K/uL (0.7-4.9); Absolute Monocytes 0.3 K/uL (0.1-1.3); Absolute Neutrophil 1.9 K/uL (1.8-8.0); Basophils % 0.5 % (0-1.3); Eosinophils % 7.6 % (0-4.4); Hematocrit 20.5 % (36.0-45.0); Lymphocytes % 39.1 % (15.3-44.8); MCHC 34.2 g/dL (32.0-36.0); MCV 90.4 fL (80-100); MPV 7.7 fL (7.6-11.3); Monocytes % 6.3 % (3.3-12.3); Neutrophils % 46.5 % (41.7-73.7); Nucleated Red Blood Cells % 0.5 % (0-0); Platelets 206 thou/uL (152-406); RBC Red Blood Cell Count 2.27 M/uL (3.86-4.86); Red Cell Distribution Width 13.2 % (12.1-15.2)
[2023-09-16 06:41] LABS: Anion Gap 6.2 mEq/L (5.0-15.0); Potassium 3.2 mEq/L (3.5-5.1)
[2023-09-16] MEDS: POTASSIUM CL SA 10 MEQ TAB PO ONE (08:48)
--- NOTE | 2023-09-16 09:03 | P.PN ---
Subjective Date of Service: 09/16/23 Chief Complaint: acute pancreatitis Admitted for acute pancreatitis, pain control as needed analgesics, on IV fluids, iv merrem for ESBL E. coli., Patient independent prior plan to discharge home with home health on IV antibiotic Plan to advance diet today - Physical Exam General: Alert, In no apparent distress, Oriented x3 HEENT: Atraumatic, Normocephalic, PERRLA Neck: Supple, 2+ carotid pulse no bruit Respiratory: Clear to auscultation bilaterally, Normal air movement, Diminished Cardiovascular: No edema, Normal pulses, Regular rate/rhythm, Normal S1 S2 Capillary refill: <2 Seconds Gastrointestinal: Normal bowel sounds, Soft and benign, Non-distended, Tenderness Musculoskeletal: No clubbing, No swelling Integumentary: No rashes, No breakdown Neurological: Normal gait, Normal speech, Normal strength at 5/5 x4 extr Review of Systems Per HPI Physical Examination - Vital Signs Temperature: 98.9 F Blood Pressure: 115/58 Pulse: 80 Respirations: 14 Pulse Ox (%): 96 Assessment And Plan - Plan Assessment plan Assessment And Plan Acute pancreatitis: Continue IVF at 150 cc/hr, FLD and prn pain med. Lipase is 77 <- 206. Plan to advance diet today, Acute cystitis with hematuria ESBL of the urine UTI: Continue iv merrem. off iv rocephin. urine cx is growing ESBL E. coli. Plan to DC home with home health with IV antibiotics Hypokalemia Trend electrolytes replace. Microcytic anemia hemoglobin 10.9, 11.1, 7 point Morbid obesity: Pt was advised to lose weight. Hx of drug abuse: pt is on suboxone at home. I told her to ask one of her family members to bring it to the hospital. DVT ppx: Lovenox Dispo: Home independent prior to admission Discharge Plan: Home - Code Status/Comfort Care Code Status: Full Code Critical Care: No Time Spent Managing PTS Care (In Minutes): 35
[2023-09-16 15:24] LABS: Absolute Eosinophils 0.4 K/uL (0-0.5); Absolute Lymphocytes (CBC) 2.1 K/uL (0.7-4.9); Absolute Monocytes 0.4 K/uL (0.1-1.3); Absolute Neutrophil 3.2 K/uL (1.8-8.0); Basophils % 0.8 % (0-1.3); Eosinophils % 7.2 % (0-4.4); Hemoglobin 11.5 g/dL (12.0-15.0); Lymphocytes % 33.7 % (15.3-44.8); MCH 30.3 pg (27.0-35.0); MCHC 33.7 g/dL (32.0-36.0); MCV 89.7 fL (80-100); MPV 7.9 fL (7.6-11.3); Monocytes % 6.8 % (3.3-12.3); Neutrophils % 51.5 % (41.7-73.7); Nucleated Red Blood Cells % 0.1 % (0-0); Platelets 316 thou/uL (152-406); RBC Red Blood Cell Count 3.78 M/uL (3.86-4.86); Red Cell Distribution Width 13.3 % (12.1-15.2)
[2023-09-16 17:15] LABS: Specific Gravity 1.005 (1.005-1.030); Sqamous Epithelial <5 /HPF (None Seen); Urine Bacteria None Seen /HPF (<20); Urine Bilirubin NEGATIVE (Negative); Urine Blood Negative (Negative); Urine Clarity Clear (Clear); Urine Color Colorless (Yellow); Urine Culture Reflex Order NOT NEEDED; Urine Glucose NEGATIVE (Negative); Urine Ketones NEGATIVE (Negative); Urine Micro Reflex YN NO BILL MICROSCOPIC; Urine Nitrite NEGATIVE (Negative); Urine Protein NEGATIVE (Negative); Urine RBC <5 /HPF (None Seen); Urine Urobilinogen Normal (Normal); Urine WBC <5 /HPF (<5); Urine Yeast (Budding) Trace /HPF (None Seen)
[2023-09-16] MEDS: METOCLOPRAMIDE 10 MG/2mL INJ ONE (23:38)
[2023-09-16] MEDS: METOCLOPRAMIDE 10 MG/2mL INJ IV PRN (23:43)
[2023-09-17 04:19] LABS: Absolute Eosinophils 0.1 K/uL (0-0.5); Absolute Lymphocytes (CBC) 1.4 K/uL (0.7-4.9); Absolute Monocytes 0.4 K/uL (0.1-1.3); Absolute Neutrophil 10.6 K/uL (1.8-8.0); Basophils % 0.2 % (0-1.3); Eosinophils % 0.8 % (0-4.4); Hematocrit 38.1 % (36.0-45.0); Hemoglobin 12.5 g/dL (12.0-15.0); Lymphocytes % 10.9 % (15.3-44.8); MCH 29.5 pg (27.0-35.0); MCHC 32.7 g/dL (32.0-36.0); MCV 90.3 fL (80-100); Monocytes % 3.1 % (3.3-12.3); Platelets 363 thou/uL (152-406); RBC Red Blood Cell Count 4.22 M/uL (3.86-4.86); Red Cell Distribution Width 13.4 % (12.1-15.2)
[2023-09-17 04:38] LABS: Anion Gap 8.1 mEq/L (5.0-15.0); Potassium 4.1 mEq/L (3.5-5.1)
--- NOTE | 2023-09-17 15:42 | P.DS ---
Admission Date: 09/10/23 Discharge Date: 09/17/23 Disposition: ROUTINE DISCHARGE Discharge Condition: GOOD Reason for Admission: acute pancreatitis Brief History of Present Illness: 43-year-old with a past medical history of pancreatitis, endometriosis, anemia, and past drug abuse. She has been weaning off Suboxone. She has a 4-day history of upper abdominal pain nausea and vomiting. She presented to the emergency department last p.m. with volume depletion and difficulty with IV initiation. A central line to the right IJ was initiated. Laboratory evaluation revealed, a white count of 11.6, stable H&H at 13.1 and 39.9. Kaia ctrolytes and liver enzymes within normal limits, lipase elevated at 206. Her urine is positive for bacteria 20-[address] evaluation reveals, " acute uncomplicated pancreatitis... Hepatomegaly and hepatic steatosis". Apparently a gallbladder ultrasound was performed approximately 4 days ago which was essentially negative. We will admit to the hospital to continue IV fluids and pain control for pancreatitis, and antibiotics for UTI post blood culture and urine culture collection - Physical Exam General: In no apparent distress, Oriented x3 HEENT: Atraumatic, Normocephalic Neck: Supple, 2+ carotid pulse no bruit Respiratory: Clear to auscultation bilaterally, Normal air movement Cardiovascular: No edema, Normal pulses, Regular rate/rhythm Capillary refill: <2 Seconds Gastrointestinal: Normal bowel sounds, Non-distended, Tenderness (upper abdomen) Musculoskeletal: No clubbing, No swelling Integumentary: No rashes Neurological: Normal speech, Normal tone Lymphatics: No axilla or inguinal lymphadenopathy Hospital Course: 43 year-old female patient presented with abdominal pain. Was noted to have acute pancreatitis. Condition improved with IV fluids, as needed antiemetics, as needed analgesics. Clear liquid diet. Patient tolerating diet, stable for discharge to home with follow-up appointment with primary care physician. Follow-up with pain management for weaning off Suboxone. PROBLEM: Acute pancreatitis improved with IV fluids, as needed analgesics Acute cystitis treated with IV antibiotics, IV fluids, weaning off Suboxone. Restarted home patch Discharge as needed Tylenol analgesics, as needed antiemetics, Follow-up with pain management for weaning off Suboxone. Continue home medicines as previously prescribed GOAL: Clear understanding of disease process INSTRUCTIONS: Physician Discharge Instructions: -Follow-up with PCP in 1 to 2 weeks -Please call Dr. Reeves at [phone] if any questions regarding hospital stay -Please call nursing station at [phone] if any nursing or medication questions -Return to the emergency room if symptoms worsen Diet: ADA, low sodium Activity: Fall precautions Vital Signs/Physical Exam: Temp Pulse Resp BP Pulse Ox 97.2 F 98 H 16 108/64 98 09/17/23 12:00 09/17/23 12:00 09/17/23 12:00 09/17/23 12:00 09/17/23 12:00 Laboratory Data at Discharge: WBC 12.50 thou/uL (4.3-10.9) H 09/17/23 04:01 Hgb 12.5 g/dL (12.0-15.0) D 09/17/23 04:01 Hct 38.1 % (36.0-45.0) 09/17/23 04:01 Plt Count 363 thou/uL (152-406) 09/17/23 04:01 Sodium 138 mEq/L (136-145) D 09/17/23 04:01 Potassium 4.1 mEq/L (3.5-5.1) 09/17/23 04:01 BUN 7 mg/dL (7-18) 09/17/23 04:01 Creatinine 0.82 mg/dL (0.55-1.02) 09/17/23 04:01 Glucose 123 mg/dL (74-106) H 09/17/23 04:01 Phosphorus 3.3 mg/dL (2.5-4.9) 09/11/23 07:16 Magnesium 1.9 mg/dL (1.6-2.4) 09/17/23 04:01 Total Bilirubin 0.3 mg/dL (0.2-1.0) 09/13/23 06:40 AST 27 U/L (15-37) 09/13/23 06:40 ALT 31 U/L (13-56) 09/13/23 06:40 Alkaline Phosphatase 61 U/L (45-117) 09/13/23 06:40 Triglycerides 101 mg/dL (<150) 09/10/23 11:00 Cholesterol 189 mg/dL (<200) 09/10/23 11:00 HDL Cholesterol 45 mg/dL (40-60) 09/10/23 11:00 Cholesterol/HDL Ratio 4.20 09/10/23 11:00 Lipase 86 U/L (13-75) H 09/16/23 05:57 Home Medications: Ondansetron [Zofran (Odt)*] 4 mg PO Q6H PRN #30 tab 06/14/22 Buprenorphine HCl/Naloxone HCl [Suboxone 2 mg-0.5 mg Tablet] 1 each SL BID 09/10/23 Gabapentin [Neurontin*] 100 mg PO TID #90 cap 09/17/23 LORazepam [Ativan*] 0.5 mg PO DAILY PRN #20 tab 09/17/23 Metoclopramide HCl [Reglan] 10 mg PO AC #90 tab 09/17/23 Mupirocin Calcium [Bactroban Nasal*] 1 appl KWAKU TID #1 tube 09/17/23 Pantoprazole [Protonix Tab] 40 mg PO BID #60 tab 09/17/23 New Medications: LORazepam [Ativan*] 0.5 mg PO DAILY PRN #20 tab PRN Reason: Anxiety Mupirocin Calcium [Bactroban Nasal*] 1 appl KWAKU TID #1 tube Gabapentin [Neurontin*] 100 mg PO TID #90 cap Pantoprazole [Protonix Tab] 40 mg PO BID #60 tab Metoclopramide HCl [Reglan] 10 mg PO AC #90 tab Physician Discharge Instructions: OK TO DC IV AND DC HOME FOLLOW-UP WITH PCP IN 1-2 WEEKS FOLLOW-UP WITH GI IN 1-[address] REEVES AT [phone] IF ANY QUESTIONS REGARDING HOSPITAL STAY Diet: low fat Activity: Fall precautions Followup: Angelica Cruz NP [Primary Care Provider] - 1-2 Weeks Time spent managing pt's care (in minutes): 55
[2023-09-17 16:58] VITALS: BP 116/68; TEMP 97
--- NOTE | 2023-09-17 21:02 | RAD REPORT ---
EXAM DESCRIPTION: RAD - Chest Single View - 09/14/2023 3:43 am CLINICAL HISTORY: Picc placement confirmation COMPARISON: 09/10/2023. TECHNIQUE: XR CHEST 1 VIEW 09/14/2023 3:15 AM CDT FINDINGS: Cardiac silhouette is normal in size. Lungs are clear without consolidation, atelectasis, mass or edema. There is no pleural effusion. There is no pneumothorax. There are no acute osseous fin dings. Right IJ central line tip is in the mid SVC. Right PICC line tip is in the mid to upper SVC. IMPRESSION: Appropriate position of right PICC line. Electronically signed by: Sharan John MD 09/14/2023 05:49 AM CDT Due to temporary technical issues with the PACS/Fluency reporting system, reports are being signed by the in house radiologists without review as a courtesy to insure prompt reporting. The interpreting radiologist is fully responsible for the content of the report
== END 2023-09-17 17:36 | disposition home or self-care (01) | DRG 439 ==
LOC: ER 22:04 → 4TH 09-10 06:08
PROVIDERS: ADMIT Hospitalist; ATTEND Hospitalist
PROC: 02HV33Z Insertion of Infusion Device into Superior Vena Cava, Percutaneous Approach (ICD-10-PCS; principal; 2023-09-14)
DX: K85.90 Acute pancreatitis without necrosis or infection, unspecified (principal); N30.01 Acute cystitis with hematuria; Z16.12 Extended spectrum beta lactamase (ESBL) resistance; I48.0 Paroxysmal atrial fibrillation; E86.9 Volume depletion, unspecified; E87.6 Hypokalemia; D50.9 Iron deficiency anemia, unspecified; F41.9 Anxiety disorder, unspecified; K76.0 Fatty (change of) liver, not elsewhere classified; E66.01 Morbid (severe) obesity due to excess calories; B96.20 Unspecified Escherichia coli [E. coli] as the cause of diseases classified elsewhere; Z88.5 Allergy status to narcotic agent; Z68.34 Body mass index [BMI] 34.0-34.9, adult
CPT/HCPCS: 36415; 36569; 71045; 74176; 76705; 80048; 80053; 80061; 81001; 81025; 82947; 83690; 83735; 84100; 84132; 84443; 85025; 87040; 87077; 87086; 87088; 87186; 93971; 96372; 99285; C9113; J0696; J1650; J2001; J2185; J2270; J2405; J2550; J2765; J3475; J3480; J7030

== ENCOUNTER 2023-11-25 22:19 | Emergency (ER) | payer OTHER ==
[2023-11-26] MEDS ORDERED: HYDROMORPHONE HCL 1 MG/ML INJ ONE ×2 (00:59→04:05)
[2023-11-26] MEDS ORDERED: ONDANSETRON 4 MG/2 ML VIAL ONE ×2 (00:59→04:35)
[2023-11-26] MEDS ORDERED: FAMOTIDINE 20 MG/2 ML VIAL IV ONE (01:00)
[2023-11-26] MEDS ORDERED: NA CHLORIDE 0.9% 1,000 ML ONE (01:00)
[2023-11-26 01:15] LABS: Specific Gravity 1.026 (1.005-1.030); Sqamous Epithelial <5 /HPF (None Seen); Urine Bacteria >50 /HPF (<20); Urine Bilirubin NEGATIVE (Negative); Urine Blood 3+ (Negative); Urine Clarity Extremely Turbid (Clear); Urine Color Yellow (Yellow); Urine Culture Reflex Order REFLEXED; Urine Glucose NEGATIVE (Negative); Urine Ketones NEGATIVE (Negative); Urine Microscopic Reflex YN ORDER UMIC; Urine Mucus Slight /HPF (None Seen); Urine Nitrite 2+ (Negative); Urine Protein TRACE (Negative); Urine RBC 21-50 /HPF (None Seen); Urine Urobilinogen Normal (Normal)
[2023-11-26 01:18] LABS: Specific Gravity 1.026 (1.005-1.030)
[2023-11-26 02:51] LABS: Absolute Basophils 0.1 K/uL (0-0.5); Absolute Eosinophils 0.3 K/uL (0-0.5); Absolute Lymphocytes (CBC) 1.2 K/uL (0.7-4.9); Absolute Monocytes 0.3 K/uL (0.1-1.3); Absolute Neutrophil 7.2 K/uL (1.8-8.0); Basophils % 0.7 % (0-1.3); Eosinophils % 3.4 % (0-4.4); Hematocrit 36.6 % (36.0-45.0); Hemoglobin 12.4 g/dL (12.0-15.0); Lymphocytes % 13.6 % (15.3-44.8); MCHC 33.9 g/dL (32.0-36.0); MCV 88.3 fL (80-100); MPV 8.1 fL (7.6-11.3); Monocytes % 3.1 % (3.3-12.3); Neutrophils % 79.2 % (41.7-73.7); Nucleated Red Blood Cells % 0.2 % (0-0); Platelets 274 thou/uL (152-406); RBC Red Blood Cell Count 4.15 M/uL (3.86-4.86); Red Cell Distribution Width 14.2 % (12.1-15.2)
[2023-11-26 03:11] LABS: Albumin 3.4 g/dL (3.4-5.0); Albumin/Globulin Ratio 1.1 (1.1-1.8); Anion Gap 6.1 mEq/L (5.0-15.0); Bilirubin Total 0.6 mg/dL (0.2-1.0); Potassium 4.1 mEq/L (3.5-5.1); Protein, Total 6.4 g/dL (6.4-8.2)
[2023-11-26] MEDS ORDERED: CEFTRIAXONE 1000 MG/VIAL ONE (04:04)
--- NOTE | 2023-11-26 04:34 | EDPHYS ---
Physician Documentation [facility] Name: Greta Luna Age: 43 yrs Sex: Female : 1980 Arrival Date: 11/25/2023 Time: 22:19 Bed 15 Private MD: ED Physician Nishant Fuchs HPI: 11/24 23:45 This 43 yrs old Female presents to ER via Ambulatory with complaints of cp Nausea/Vomiting, Abdominal Pain. 23:45 The patient presents to the emergency department with nausea, that is moderate, cp vomiting, that is intermittent, abdominal pain, of the epigastric area and upper abdomen, described as sharp, and does not radiate. 23:45 Onset: The symptoms/episode began/occurred 2 day(s) ago. cp 23:45 Possible causes: flare up of bowel problem, hx of pancreatitis. Associated signs and cp symptoms: Pertinent negatives: constipation, diarrhea, GI bleeding, active vomiting. 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 Flu vaccine is not up to date. - Infectious Disease History:: Denies. - Social history:: Smoking status: Patient/guardian denies using tobacco, the patient reports quitting approximately 1.5 years ago, Patient uses alcohol, but reports only rare drinking. Patient/guardian denies using street drugs, IV drugs. ROS: 23:50 Constitutional: Negative for body aches, chills, fever, cp 23:50 Cardiovascular: Negative for chest pain, edema, palpitations, cp 11/25 04:36 Constitutional: as per hpi ec2 Exam: 11/24 23:55 Constitutional: The patient appears in no acute distress, alert, awake, cp non-diaphoretic, non-toxic, well developed, well nourished, obese, uncomfortable, 23:55 Head/Face: Normocephalic, atraumatic. cp 23:55 Eyes: Periorbital structures: appear normal, Conjunctiva: normal, no exudate, no injection, Sclera: no appreciated abnormality, Lids and lashes: appear normal, bilaterally, 23:55 ENT: External ear(s): are unremarkable, Nose: is normal, Mouth: Lips: moist, Oral mucosa: pink and intact, moist, Posterior pharynx: Airway: no evidence of obstruction, patent, 23:55 Chest/axilla: Inspection: normal, cp 23:55 Cardiovascular: Rate: tachycardic, Rhythm: regular, Edema: is not appreciated, JVD: is not appreciated, 23:55 Respiratory: the patient does not display signs of respiratory distress, Respirations: normal, no use of accessory muscles, no retractions, labored breathing, is not present, Breath sounds: are clear throughout, no decreased breath sounds, no stridor, no wheezing, 23:55 Abdomen/GI: Inspection: obese Bowel sounds: active, all quadrants, Palpation: soft, in all quadrants, moderate abdominal tenderness, in the epigastric area, rebound tenderness, is not appreciated, involuntary guarding, is not appreciated, 23:55 Back: ROM is normal, 23:55 Neuro: Orientation: to person, place \T\ time. Mentation: is normal, Vital Signs: 23:28 BP 133 / 71; Pulse 101; Resp 18 S; Temp 98(O); Pulse Ox 100% on R/A; Weight 118.84 kg; 7 Height 5 ft. 9 in. ; Pain 8/10; 11/25 00:00 BP 110 / 45; Pulse 50; Resp 18; Pulse Ox 99% on R/A; cm10 01:00 BP 110 / 84; Pulse 74; Resp 16; Pulse Ox 100% on R/A; cm10 02:10 BP 105 / 59; Pulse 56; Resp 18; Pulse Ox 100% on R/A; cm10 04:44 BP 110 / 60; Pulse 58; Resp 17; Pulse Ox 100% ; vc1 11/24 23:28 Body Mass Index 38.69 (118.84 kg, 175.26 cm) [facility] 11/24 23:28 Pain Scale: Adult [facility] MDM: 03:41 Data reviewed: vital signs. ED course: Patient signed out to me with pending CT ec2 imaging. Lab work shows a reassuring CBC without leukocytosis, metabolic profile with appropriate electrolytes, lipase is mildly elevated to 34, urine is infectious appearing, will give ceftriaxone, negative for . Pending CT imaging. Plan is to reassess patient and follow-up on imaging and possible admit versus DC home. . 03:42 Patient medically screened. ec2 04:33 ED course: CT abdomen pelvis shows mild acute pancreatitis. I do shared decision-making ec2 with the patient regarding inpatient hospitalization versus outpatient management, patient states that the pain seems to be well-controlled enough right now that she feels safe to trial at home therapy. I will prescribe the patient antibiotics for her UTI, medication for her pain as well as antiemetic. Will discharge home. Return precautions given.. 04:37 ED course: MDM: Differential diagnosis include pancreatitis, gastroenteritis, small ec2 bowel obstruction; All lab tests ordered and reviewed as documented above; Parenteral controlled substances: Yes; Discuss inpatient hospitalization: Yes; . 11/24 23:39 Order name: CBC with Diff; Complete Time: 03:14 11/25 03:14 Interpretation: Normal except: CATALINA% 79.2; LYM% 13.6; MN% 3.1. 11/24 23:39 Order name: CMP; Complete Time: 03:14 11/25 03:14 Interpretation: Normal except: GLUC 118; GFR 83. 11/24 23:39 Order name: Lipase; Complete Time: 03:14 11/25 03:14 Interpretation: Abnormal: LIP 234. 11/24 23:39 Order name: Test, Urine; Complete Time: 01:49 11/25 01:50 Interpretation: Reviewed. 11/24 23:39 Order name: Urinalysis w/ reflexes; Complete Time: 01:49 11/25 01:50 Interpretation: Normal except: [facility] Extremely Turbid; UBLD 3+; UPROT TRACE; UNIT 2+; cp UESTR 25; UWBC 10-20; URBC 21-50; UBACT >50. 11/25 01:19 Order name: Urine Culture EDVA 11/25 04:30 Order name: CREATININE WHOLE BLOOD; Complete Time: 04:36 [facility] 11/24 23:39 Order name: CT Abd/Pelvis - IV Contrast Only 11/24 23:39 Order name: IV Saline Lock; Complete Time: 00:54 cp 11/24 23:39 Order name: Labs collected and sent; Complete Time: 00:54 cp Administered Medications: 01:15 Drug: HYDROmorphone IVP 1 mg IVP once Route: IVP; Site: right forearm; cm10 02:19 Follow up: Response: No adverse reaction; Marked relief of symptoms; Pain is decreased cm10 01:16 Drug: NS 0.9% IV 1000 ml IV at 1 bolus Per protocol; 1000 mL bolus Route: IV; Rate: 1 cm10 bolus; Site: right forearm; 01:16 Drug: Famotidine IVP 20 mg IVP once; dilute with 10 mL 0.9% NaCl; give over 2 minutes cm10 Route: IVP; Site: right forearm; 02:19 Follow up: Response: No adverse reaction; Marked relief of symptoms cm10 01:16 Drug: Ondansetron IVP 4 mg IVP once; over 2 minutes Route: IVP; Site: right forearm; cm10 02:19 Follow up: Response: No adverse reaction; Marked relief of symptoms cm10 04:24 Drug: HYDROmorphone IVP 1 mg IVP once Route: IVP; Site: right antecubital; vc1 04:24 Drug: Rocephin IV 1 grams IV at calculated rate once; Given slow IV push per pharmacy vc1 instructions Route: IV; Rate: calculated rate; Site: right antecubital; Disposition: 04:33 I agree with the assessment and plan of care. I reviewed the patient's care provided by 2 Advanced Practice Provider \T\ agree w/ the diagnosis \T\ care plan. I personally saw the pt \T\ performed a substantive portion of the visit, incldng all aspects of the (History/Exam/Medical Decision Making). Disposition Summary: 11/26/23 04:34 Discharge Ordered Notes: Location: Home ec2 Condition: Stable ec2 Diagnosis - Other acute pancreatitis without necrosis or infection ec2 - UTI/ Urinary tract infection, site not specified ec2 - Abdominal pain, Generalized ec2 Followup: ec2 - With: Private Physician - When: - Reason: Re-evaluation by your physician Discharge Instructions: - Discharge Summary Sheet ec2 - Acute Pancreatitis ec2 Forms: - Medication Reconciliation Form ec2 - Antibiotic Education ec2 - Prescription Opioid Use ec2 - Patient Portal Instructions ec2 - Leadership Thank You Letter ec2 Prescriptions: - acetaminophen-codeine 300-15 mg Oral tablet - take 1 tablet ORAL route every 6 hours as needed for pain; 15 tablet; Refills: ec2 0, Product Selection Permitted - gabapentin 300 mg Oral capsule - take 1 capsule ORAL route every 12 hours; 30 capsule; Refills: 0, Product ec2 Selection Permitted - Zofran 4 mg Oral Tablet - take 1 tablet ORAL route every 12 hours As needed; 20 tablet; Refills: 0, ec2 Product Selection Permitted - Macrobid 100 mg Oral Capsule - take 1 capsule ORAL route every 12 hours for 7 days; 14 capsule; Refills: 0, ec2 Product Selection Permitted Signatures: Dispatcher [employer] EDMS Jeremias Haywood PA PA cp Lauren Grigsby RN RN vc1 Valarie Huertas RN RN jw7 Georgia Vidal RN RN cm10 Nishant Fuchs MD MD ec2 Corrections: (The following items were deleted from the chart) 11/24 23:39 23:39 CBC+H.LAB.BRZ ordered. EDMS EDMS 23:39 23:39 COMPREHENSIVE METABOLIC PANEL+C.LAB.BRZ ordered. EDMS EDMS 23:39 23:39 LIPASE+C.LAB.BRZ ordered. EDMS EDMS 23:39 23:39 Test, Urine+UC.LAB.BRZ ordered. EDMS EDMS 23:39 23:39 Urinalysis+U.LAB.BRZ ordered. EDVA EDMS 11/25 03:17 11/24 23:45 The patient presents to the emergency department with nausea, that is cp moderate, vomiting, that is intermittent, abdominal pain, of the epigastric area and upper abdomen, cp
--- NOTE | 2023-11-26 04:34 | ER ---
Nurse's Notes [facility] Name: Greta Luna Age: 43 yrs Sex: Female : 1980 Arrival Date: 11/25/2023 Time: 22:19 Bed 15 Private MD: Diagnosis: Other acute pancreatitis without necrosis or infection;UTI/ Urinary tract infection, site not specified;Abdominal pain, Generalized Presentation: 11/24 23:28 Chief complaint: Patient states: "I think I have pancreatitis", I'm having upper jw7 abdominal pain that started on Saturday after I drank a couple mimosas and it has continually been getting worse since. Coronavirus screen: At this time, the client does not indicate any symptoms associated with coronavirus-19. Ebola Screen: No symptoms or risks identified at this time. Initial Sepsis Screen: Does the patient meet any 2 criteria? No. Patient's initial sepsis screen is negative. Does the patient have a suspected source of infection? No. Patient's initial sepsis screen is negative. Risk Assessment: Do you want to hurt yourself or someone else? Patient reports no desire to harm self or others. Onset of symptoms was November 23, 2023. 23:28 Method Of Arrival: Ambulatory [facility] 23:28 Acuity: EVELYN 3 jw7 Triage Assessment: 23:31 General: Appears in no apparent distress. uncomfortable, Behavior is calm, cooperative, jw7 appropriate for age. Pain: Complains of pain in epigastric area Pain does not radiate. Pain currently is 8 out of 10 on a pain scale. Quality of pain is described as sharp, Pain began 2-3 days ago. Is continuous. EENT: No deficits noted. No signs and/or symptoms were reported regarding the EENT system. Neuro: Level of Consciousness is awake, alert, obeys commands, Oriented to person, place, time, situation, Appropriate for age. Cardiovascular: Heart tones S1 S2 present Capillary refill < 3 seconds Clubbing of nail beds is absent JVD is absent Patient's skin is warm and dry. Respiratory: Airway is patent Trachea midline Respiratory effort is even, unlabored, Respiratory pattern is regular, symmetrical. GI: Abdomen is round non-distended, obese, Bowel sounds present X 4 quads. Abd is soft and non tender X 4 quads. Reports upper abdominal pain, nausea, vomiting. : No deficits noted. No signs and/or symptoms were reported regarding the genitourinary system. Derm: Skin is intact, is healthy with good turgor, Skin is dry, Skin is normal, Skin temperature is warm. Musculoskeletal: Circulation, motion, and sensation intact. Range of motion: intact in all extremities. 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 Flu vaccine is not up to date. - Infectious Disease History:: Denies. - Social history:: Smoking status: Patient/guardian denies using tobacco, the patient reports quitting approximately 1.5 years ago, Patient uses alcohol, but reports only rare drinking. Patient/guardian denies using street drugs, IV drugs. Screenin:36 [facility] ED Fall Risk Assessment (Adult) History of falling in the last 3 months, jw7 including since admission No falls in past 3 months (0 pts) Confusion or Disorientation No (0 pts) Intoxicated or Sedated No (0 pts) Impaired Gait No (0 pts) Mobility Assist Device Used No (0 pt) Altered Elimination No (0 pt) Score/Fall Risk Level 0 - 2 = Low Risk Oriented to surroundings, Maintained a safe environment, Educated pt \\T\\ family on fall prevention, incl call for assistance when getting out of bed. Abuse screen: Denies threats or abuse. Denies injuries from another. Nutritional screening: No deficits noted. Tuberculosis screening: No symptoms or risk factors identified. Assessment: 11/25 01:00 General: Appears in no apparent distress. uncomfortable, Behavior is calm, cooperative. cm10 Pain: Complains of pain in abdomen and epigastric area. Neuro: No deficits noted. Level of Consciousness is awake, alert, obeys commands, Oriented to person, place, time, situation, Appropriate for age. Cardiovascular: No deficits noted. Patient's skin is warm and dry. Respiratory: No deficits noted. Airway is patent Respiratory effort is even, unlabored, Respiratory pattern is regular, symmetrical. GI: Reports upper abdominal pain, nausea, vomiting. : Reports burning with urination. Derm: No deficits noted. Skin is intact, Skin is pink, warm \\T\\ dry. Musculoskeletal: No deficits noted. Range of motion: intact in all extremities. 02:19 Reassessment: Patient appears in no apparent distress at this time. No changes from cm10 previously documented assessment. Patient and/or family updated on plan of care and expected duration. Pain level reassessed. Patient is alert, oriented x 3, equal unlabored respirations, skin warm/dry/pink. Patient states feeling better. Patient states symptoms have improved. Vital Signs: 11/24 23:28 BP 133 / 71; Pulse 101; Resp 18 S; Temp 98(O); Pulse Ox 100% on R/A; Weight 118.84 kg; jw7 Height 5 ft. 9 in. ; Pain 8/10; 11/25 00:00 BP 110 / 45; Pulse 50; Resp 18; Pulse Ox 99% on R/A; cm10 01:00 BP 110 / 84; Pulse 74; Resp 16; Pulse Ox 100% on R/A; cm10 02:10 BP 105 / 59; Pulse 56; Resp 18; Pulse Ox 100% on R/A; cm10 04:44 BP 110 / 60; Pulse 58; Resp 17; Pulse Ox 100% ; vc1 11/24 23:28 Body Mass Index 38.69 (118.84 kg, 175.26 cm) [facility] 11/24 23:28 Pain Scale: Adult [facility] ED Course: 11/24 22:19 Patient arrived in ED. ec2 22:22 Jeremias Haywood PA is PHCP. cp 22:22 Nishant Fuchs MD is Attending Physician. cp 23:31 Triage completed. jw7 23:31 Arm band placed on. jw7 23:36 Patient has correct armband on for positive identification. Bed in low position. Call [facility] light in reach. 11/25 00:34 Georgia Vidal, AMY is Primary Nurse. cm10 00:54 CBC with Diff Sent. cm10 00:54 CMP Sent. cm10 00:54 Lipase Sent. cm10 00:54 Test, Urine Sent. cm10 00:54 Urinalysis w/ reflexes Sent. cm10 00:54 Accessed ,peripheral vein via ultrasound, utilizing static ultrasound technique Clean \\T\\ cm10 dry. Dressing intact. Good blood return. Flushes easily. 20G right forearm. 00:54 Initial lab(s) drawn, by me, sent to lab. cm10 02:34 Lab(s) recollected, by me, sent to lab. cm10 02:52 CT Abd/Pelvis - IV Contrast Only In Process Unspecified. EDMS 03:03 Report given to Lauren REYES. cm10 04:44 No provider procedures requiring assistance completed. IV discontinued, intact, vc1 bleeding controlled, No redness/swelling at site. Pressure dressing applied. 04:45 Provided Education on: abx . vc1 Administered Medications: 01:15 Drug: HYDROmorphone IVP 1 mg IVP once Route: IVP; Site: right forearm; cm10 02:19 Follow up: Response: No adverse reaction; Marked relief of symptoms; Pain is decreased cm10 01:16 Drug: NS 0.9% IV 1000 ml IV at 1 bolus Per protocol; 1000 mL bolus Route: IV; Rate: 1 cm10 bolus; Site: right forearm; 01:16 Drug: Famotidine IVP 20 mg IVP once; dilute with 10 mL 0.9% NaCl; give over 2 minutes cm10 Route: IVP; Site: right forearm; 02:19 Follow up: Response: No adverse reaction; Marked relief of symptoms cm10 01:16 Drug: Ondansetron IVP 4 mg IVP once; over 2 minutes Route: IVP; Site: right forearm; cm10 02:19 Follow up: Response: No adverse reaction; Marked relief of symptoms cm10 04:24 Drug: HYDROmorphone IVP 1 mg IVP once Route: IVP; Site: right antecubital; vc1 04:24 Drug: Rocephin IV 1 grams IV at calculated rate once; Given slow IV push per pharmacy vc1 instructions Route: IV; Rate: calculated rate; Site: right antecubital; Medication: 02:12 VIS not applicable for this client. cm10 Outcome: 04:34 Discharge ordered by . ec2 04:45 Discharged to home ambulatory, with significant other, vc1 04:45 Condition: good 04:45 Discharge instructions given to patient, Instructed on discharge instructions, follow up and referral plans. medication usage, Demonstrated understanding of instructions, follow-up care, medications, Prescriptions given X 4, 04:45 Patient left the ED. vc1 Signatures: Dispatcher [employer] EDMS Jeremias Haywood PA PA cp Calcote, Vanessa RN RN vc1 Valarie Huertas RN RN jw7 Georgia Vidal RN RN cm10 Nishant Fuchs MD MD ec2
[2023-11-26 10:24] VITALS: BP 110/60; TEMP 98; O2SAT 100
--- NOTE | 2023-11-26 15:13 | RAD REPORT ---
EXAM DESCRIPTION: CT - Abdomen Pelvis W Contrast - 11/26/2023 6:42 am CLINICAL HISTORY: The patient is 33 years old and is Female; DIZZINESS TECHNIQUE: Axial computed tomography images of the head/brain without intravenous contrast. Sagitt al and coronal reformatted images were created and reviewed. This CT exam was performed using one o r more of the following dose reduction techniques: automated exposure control, adjustment of the mA and/or kV according to patient size, and/or use of iterative reconstruction technique. COMPARISON: No relevant prior studies available. FINDINGS: Brain: Unremarkable. No hemorrhage. No significant white matter disease. No edema. Ventricles: Unremarkable. No ventriculomegaly. Bones/joints: Unremarkable. No acute fracture. Soft tissues: Unremarkable. Sinuses: Left maxillary sinus mucosal thickening. Mastoid air cells: Unremarkable as visualized. No mastoid effusion. IMPRESSION: No acute intracranial abnormality. Electronically signed by: Bryan Eubanks MD 11/26/2023 06:11 AM CDT RP 8 Due to temporary technical issues with the PACS/Fluency reporting system, reports are being signed by the in house radiologists without review as a courtesy to insure prompt reporting. The interpreting radiologist is fully responsible for the content of the report.
== END 2023-11-26 04:45 | disposition home or self-care (01) ==
LOC: ER 22:19
DX: K85.80 Other acute pancreatitis without necrosis or infection (principal); N39.0 Urinary tract infection, site not specified
CPT/HCPCS: 87088; 85025; 81001; 87086; 36415; 81025; 82565; 83690; 80053; 74177; Q9967; J1170 ×2; J2405 ×2; J7030; J0696